=== PATIENT | female | born 1945 | race Caucasian/White ===

== ENCOUNTER 2017-06-26 08:23 | Emergency (ER) | payer MEDICARE, MEDICAID ==
[~2017-06-26] VITALS: Ht 160 cm; Wt 52.0 kg
[~2017-06-26 08:23] MED LIST: ATEN50TA23 PO; CITA20TA11 PO; CLON1TAB4 PO; FOLI1TAB16 PO; LEVO25TA7 PO; LISI2.5T2 PO; SIMV20TA5 PO; THI100T PO
[2017-06-26 08:29] VITALS: BP 160/62
[2017-06-26] MEDS ORDERED: NYST1000 PO (08:38)
[2017-06-26] MEDS ORDERED: LIDO20SO16 PO (08:38)
== END 2017-06-26 08:44 | disposition home or self-care (01) ==
LOC: ER 08:24
DX: K14.6 Glossodynia (principal); B37.0 Candidal stomatitis; I10 Essential (primary) hypertension
CPT/HCPCS: 99283

== ENCOUNTER 2018-04-10 11:01 | Inpatient (IN) | payer MEDICARE, MEDICAID ==
[~2018-04-10] VITALS: Ht 160 cm; Wt 64.0 kg
[~2018-04-10 11:01] MED LIST changes: +CITA-278 PO; -CITA20TA11 PO; +CLON1TAB12 PO; -CLON1TAB4 PO; +LIDO20SO16 PO
[2018-04-10] MEDS ORDERED: Potassium Cl inj 20 MEQ, magnesium sulf injection 2 GM, folic acid inj. 1 MG, thiamine ... IV ONE ×6 (11:13)
[2018-04-10] MEDS ORDERED: normal saline 1000ML IV soln IVB ONE (11:15)
--- NOTE | 2018-04-10 11:47 | NUR ---
pt out to ct via wheelchair with ct techs
[2018-04-10 11:55] LABS: BASOPHILS % (AUTO) 0.9 % (0-1); EOSINOPHILS # (AUTO) 0.1 X10'3 (0-0.9); EOSINOPHILS % (AUTO) 1.7 % (0-6); HEMOGLOBIN 8.2 g/dl (12.0-16.0); LYMPHOCYTES # (AUTO) 0.8 X10'3 (1.1-4.8); LYMPHOCYTES % (AUTO) 14.1 % (21-51); MEAN CORPUSCULAR HEMOGLOBIN 35.5 PG (27.0-31.0); MEAN CORPUSCULAR VOLUME 104.4 FL (78-98); MONOCYTES # (AUTO) 0.6 X10'3 (0-0.9); MONOCYTES % (AUTO) 11.6 % (2-12); NEUTROPHILS # (AUTO) 3.8 X10'3 (1.8-7.7); NEUTROPHILS % (AUTO) 71.7 % (42-75); PLATELET COUNT 279 X10'3 (140-440); RED CELL DISTRIBUTION WIDTH 13.9 % (11.5-14.5); WHITE BLOOD COUNT 5.3 X10'3 (4.5-11.0)
[2018-04-10 12:08] LABS: INR 1.1 INR; PARTIAL THROMBOPLASTIN TIME 26 SECONDS (22-32); PROTHROMBIN TIME 11.4 SECONDS (9.0-12.0)
[2018-04-10 12:11] LABS: ALANINE AMINOTRANSFERASE 28 U/L (12-78); ALBUMIN 2.8 G/DL (3.4-5.0); ALKALINE PHOSPHATASE 70 IU/L (46-116); ANION GAP 13 (8-16); ASPARTATE AMINO TRANSFERASE 28 U/L (10-37); BILIRUBIN,TOTAL 0.3 MG/DL (0.1-1.0); BLOOD UREA NITROGEN 9 MG/DL (7-18); CALCIUM 8.1 MG/DL (8.5-10.1); CHLORIDE 107 MMOL/L (99-107); CREATININE 0.75 MG/DL (0.40-0.90); GLUCOSE 83 MG/DL (70-104); POTASSIUM 3.8 MMOL/L (3.5-5.1); SODIUM 142 MMOL/L (135-145); TOTAL CARBON DIOXIDE 22.3 MMOL/L (24-32); TOTAL PROTEIN 5.7 G/DL (6.4-8.2); eGFR 76 ML/MIN
[2018-04-10 12:22] LABS: ETHANOL 0.038 GM/DL (0.0-0.010)
[2018-04-10 12:45] LABS: CLARITY,URINE CLEAR (Clear); COLOR,URINE YELLOW (Yellow); GLUCOSE, URINE NEGATIVE (Neg); KETONES,URINE NEGATIVE (Neg); LEUKOCYTE ESTERASE ,URINE NEGATIVE (Neg); NITRITES, URINE NEGATIVE (Neg); OCCULT BLOOD,URINE TRACE-INTACT (Neg); PH,URINE 5.5 (4.8-8.0); PROTEIN,URINE NEGATIVE (Neg); UROBILINOGEN,URINE 0.2 E.U/dL (0.2-1.0)
[2018-04-10 12:56] LABS: URINE AMPHETAMINE SCREEN NEGATIVE (Neg); URINE BARBITUATE SCREEN NEGATIVE (Neg); URINE BENZODIAZEPINES SCREEN POSITIVE (Neg); URINE CANNABINOID SCREEN NEGATIVE (Neg); URINE COCAINE SCREEN NEGATIVE (Neg); URINE METHADONE SCREEN NEGATIVE (Neg); URINE OPIATE SCREEN NEGATIVE (Neg); URINE PHENCYCLIDINE SCREEN NEGATIVE (Neg)
[2018-04-10 13:01] LABS: UA COLLECTION TYPE STRAIGHT CATH
[2018-04-10 13:02] LABS: SQUAMOUS EPITHELIAL CELL,UR MODERATE /LPF (FEW)
[2018-04-10 13:03] LABS: BACTERIA,URINE 2+ /HPF (Neg); WBC,URINE 0-4 /HPF (0-4)
[2018-04-10 13:04] LABS: RBC,URINE 0-2 /HPF (0-2)
[2018-04-10] MEDS: magnesium 2GM in 50ml NS 50 ML IV SCH ×2 (13:54→16:11)
[2018-04-10] MEDS ORDERED: TETanus/Pertussis (Acell)/Diphther VAC/PF (Tdap-Adult) 0.5ml syringe IM ONE (14:20)
[2018-04-10] MEDS ORDERED: LISI-600 PO (14:34)
[2018-04-10] MEDS ORDERED: THIA100T73 PO (14:35)
[2018-04-10] MEDS ORDERED: BUSP15TA14 PO (14:35)
[2018-04-10] MEDS ORDERED: magnesium 4gm in 100ml NS 100 ML IV PRN (15:00)
[2018-04-10] MEDS ORDERED: acetaminophen 325mg tablet PO PRN (15:00)
[2018-04-10] MEDS ORDERED: potassium Cl 20 mEq SR tablet PO PRN ×2 (15:00)
[2018-04-10] MEDS ORDERED: potassium Cl 40MEQ/NS 500ml 500 ML IV PRN ×2 (15:00)
[2018-04-10] MEDS ORDERED: magnesium 2GM in 50ml NS 50 ML IV PRN (15:00)
[2018-04-10] MEDS ORDERED: magnesium Cl slow-release 64mg tablet PO PRN (15:00)
[2018-04-10] MEDS ORDERED: ondansetron/PF 4mg/2ml inj IV PRN (15:00)
[2018-04-10] MEDS ORDERED: mag hydrox/Alum hydrox/simeth 30ml oral suspension PO PRN (15:00)
[2018-04-10] MEDS ORDERED: thiamine inj. 100 MG, magnesium sulf injection 2 GM, MVI, adult No.4 with vit. K 10 ML ... IV SCH ×4 (15:10)
[2018-04-10] MEDS: normal saline 1000ml 1,000 ML IV SCH (16:11)
--- NOTE | 2018-04-10 16:45 | NUR ---
Patient in room LITA 346. I have received report from Michael ROJO and had the opportunity to ask questions and assume patient care.
[2018-04-10 17:18] VITALS: BP 126/54
--- NOTE | 2018-04-10 17:30 | NUR ---
Patient was situated in room at this time patient was hooked back into IV therapies ordered by the physician, Vital signs take all WNL heart sounds S1S2, Lungs clear. Nasal swab was acquired and 2 nurse skin check was completed at this time. Patient was set up with tabs and bed alarm for the slot shift supervisor as well.
--- NOTE | 2018-04-10 18:55 | NUR ---
Problems reprioritized. Patient report given, questions answered & plan of care reviewed with Stephanie ROJO.
--- NOTE | 2018-04-10 18:56 | NUR ---
Patient in room LITA 346. I have received report from EVELINE ROJO and had the opportunity to ask questions and assume patient care.
[2018-04-10] MEDS: heparin, porcine 5000 units/ml vial SQ SCH (19:35)
[2018-04-10] MEDS: LORazepam 1 MG tablet PO PRN (19:59)
[2018-04-10 20:00] VITALS: BP 135/66
--- NOTE | 2018-04-10 22:00 | NUR ---
PATIENT CANNOT BE DARTED VERY CONFUSED, WILL REPORT AM RN TO DART WITH PATIENT'S FAMILY.
[2018-04-11] VITALS: BP 117/50
[2018-04-11] MEDS: normal saline 1000ml 1,000 ML IV SCH ×3 (01:17→19:27)
[2018-04-11] MEDS: LORazepam 1 MG tablet PO PRN ×2 (03:41→19:23)
[2018-04-11 06:21] LABS: BASOPHILS # (AUTO) 0.1 X10'3 (0-0.2); BASOPHILS % (AUTO) 1.9 % (0-1); EOSINOPHILS # (AUTO) 0.1 X10'3 (0-0.9); EOSINOPHILS % (AUTO) 2.4 % (0-6); HEMATOCRIT 26.4 % (35.0-45.0); HEMOGLOBIN 8.8 g/dl (12.0-16.0); LYMPHOCYTES # (AUTO) 1.6 X10'3 (1.1-4.8); LYMPHOCYTES % (AUTO) 26.7 % (21-51); MEAN CORPUSCULAR HEMOGLOBIN 35.5 PG (27.0-31.0); MEAN CORPUSCULAR HGB CONC 33.2 g/dL (33.0-36.5); MEAN CORPUSCULAR VOLUME 106.9 FL (78-98); MEAN PLATELET VOLUME 7.6 FL (7.4-10.4); MONOCYTES # (AUTO) 0.7 X10'3 (0-0.9); MONOCYTES % (AUTO) 12.5 % (2-12); NEUTROPHILS # (AUTO) 3.4 X10'3 (1.8-7.7); NEUTROPHILS % (AUTO) 56.5 % (42-75); PLATELET COUNT 253 X10'3 (140-440); RED BLOOD COUNT 2.47 X10'6 (4.20-5.60); RED CELL DISTRIBUTION WIDTH 13.4 % (11.5-14.5); WHITE BLOOD COUNT 5.9 X10'3 (4.5-11.0)
--- NOTE | 2018-04-11 06:23 | NUR ---
Problems reprioritized. Patient report given, questions answered & plan of care reviewed with EVELINE RN.
[2018-04-11 06:38] LABS: INR 1.1 INR; PROTHROMBIN TIME 10.7 SECONDS (9.0-12.0)
--- NOTE | 2018-04-11 06:41 | NUR ---
Patient in room LITA 346. I have received report from Stephanie ROJO and had the opportunity to ask questions and assume patient care.
[2018-04-11 07:11] LABS: ALANINE AMINOTRANSFERASE 23 U/L (12-78); ALBUMIN 2.7 G/DL (3.4-5.0); ALBUMIN/GLOBULIN RATIO 0.8 (1.1-1.5); ALKALINE PHOSPHATASE 70 IU/L (46-116); AMYLASE 54 U/L (25-115); ANION GAP 12 (8-16); ASPARTATE AMINO TRANSFERASE 27 U/L (10-37); BILIRUBIN,TOTAL 0.3 MG/DL (0.1-1.0); BLOOD UREA NITROGEN 9 MG/DL (7-18); BUN/CREATININE RATIO 12.7 (6.6-38.0); CALCIUM 8.1 MG/DL (8.5-10.1); CHLORIDE 107 MMOL/L (99-107); CREATININE 0.71 MG/DL (0.40-0.90); GLUCOSE 80 MG/DL (70-104); LIPASE 73 U/L (73-393); MAGNESIUM 1.9 MG/DL (1.5-2.4); PHOSPHORUS 3.3 MG/DL (2.3-4.5); SODIUM 139 MMOL/L (135-145); TOTAL CARBON DIOXIDE 19.7 MMOL/L (24-32); TOTAL PROTEIN 5.9 G/DL (6.4-8.2); eGFR 81 ML/MIN
[2018-04-11 07:24] VITALS: BP 129/65
[2018-04-11] MEDS: K and/or MAG REPLACEMENT MC SCH (08:00)
[2018-04-11] MEDS: thiamine inj. 100 MG, magnesium sulf injection 2 GM, MVI, adult No.4 with vit. K 10 ML ... IV SCH ×4 (08:28)
[2018-04-11] MEDS: heparin, porcine 5000 units/ml vial SQ SCH ×2 (08:28→19:26)
[2018-04-11 11:30] VITALS: BP 123/62
--- NOTE | 2018-04-11 18:43 | NUR ---
Problems reprioritized. Patient report given, questions answered & plan of care reviewed with ERNA ROJO.
--- NOTE | 2018-04-11 18:45 | NUR ---
Patient in room LITA 346. I have received report from EVELINE ROJO and had the opportunity to ask questions and assume patient care.
[2018-04-11] MEDS: busPIRone 15mg tablet PO SCH (19:24)
[2018-04-11 20:00] VITALS: BP 159/63
[2018-04-11] MEDS: atorvastatin 10mg tablet PO SCH (21:00)
[2018-04-11] MEDS: LORazepam 2 mg/ml vial IV PRN (21:04)
[2018-04-12] VITALS: BP 162/94
[2018-04-12] MEDS: LORazepam 2 mg/ml vial IV PRN ×2 (01:19→12:04)
[2018-04-12] MEDS: normal saline 1000ml 1,000 ML IV SCH ×2 (05:04→16:56)
--- NOTE | 2018-04-12 06:30 | NUR ---
Problems reprioritized. Patient report given, questions answered & plan of care reviewed with NATALIA ROJO.
--- NOTE | 2018-04-12 07:01 | NUR ---
Patient in room LITA 341. I have received report from ALIA UMANZOR and had the opportunity to ask questions and assume patient care.
[2018-04-12 07:19] LABS: BASOPHILS # (AUTO) 0.1 X10'3 (0-0.2); BASOPHILS % (AUTO) 0.9 % (0-1); EOSINOPHILS # (AUTO) 0.2 X10'3 (0-0.9); EOSINOPHILS % (AUTO) 2.7 % (0-6); HEMATOCRIT 29.4 % (35.0-45.0); HEMOGLOBIN 9.3 g/dl (12.0-16.0); LYMPHOCYTES # (AUTO) 1.1 X10'3 (1.1-4.8); LYMPHOCYTES % (AUTO) 18.5 % (21-51); MEAN CORPUSCULAR HEMOGLOBIN 33.6 PG (27.0-31.0); MEAN CORPUSCULAR HGB CONC 31.6 g/dL (33.0-36.5); MEAN CORPUSCULAR VOLUME 106.3 FL (78-98); MEAN PLATELET VOLUME 7.8 FL (7.4-10.4); MONOCYTES # (AUTO) 0.7 X10'3 (0-0.9); MONOCYTES % (AUTO) 10.7 % (2-12); NEUTROPHILS % (AUTO) 67.2 % (42-75); PLATELET COUNT 315 X10'3 (140-440); RED BLOOD COUNT 2.77 X10'6 (4.20-5.60); RED CELL DISTRIBUTION WIDTH 12.9 % (11.5-14.5); WHITE BLOOD COUNT 6.1 X10'3 (4.5-11.0)
[2018-04-12 07:24] LABS: INR 1.1 INR; PROTHROMBIN TIME 10.8 SECONDS (9.0-12.0)
[2018-04-12 07:30] LABS: ALANINE AMINOTRANSFERASE 27 U/L (12-78); ALBUMIN 2.9 G/DL (3.4-5.0); ALBUMIN/GLOBULIN RATIO 0.8 (1.1-1.5); ALKALINE PHOSPHATASE 79 IU/L (46-116); AMYLASE 64 U/L (25-115); ANION GAP 10 (8-16); ASPARTATE AMINO TRANSFERASE 26 U/L (10-37); BILIRUBIN,TOTAL 0.5 MG/DL (0.1-1.0); BLOOD UREA NITROGEN 7 MG/DL (7-18); BUN/CREATININE RATIO 9.2 (6.6-38.0); CALCIUM 8.8 MG/DL (8.5-10.1); CHLORIDE 104 MMOL/L (99-107); CREATININE 0.76 MG/DL (0.40-0.90); GLUCOSE 89 MG/DL (70-104); LIPASE 60 U/L (73-393); MAGNESIUM 1.7 MG/DL (1.5-2.4); PHOSPHORUS 2.9 MG/DL (2.3-4.5); POTASSIUM 3.8 MMOL/L (3.5-5.1); SODIUM 140 MMOL/L (135-145); TOTAL CARBON DIOXIDE 26.1 MMOL/L (24-32); TOTAL PROTEIN 6.4 G/DL (6.4-8.2); eGFR 75 ML/MIN
[2018-04-12 08:00] VITALS: BP 146/83
[2018-04-12] MEDS: K and/or MAG REPLACEMENT MC SCH (08:00)
[2018-04-12] MEDS: busPIRone 15mg tablet PO SCH ×2 (08:54→22:05)
[2018-04-12] MEDS: thiamine 100mg tablet PO SCH (08:54)
[2018-04-12] MEDS: citalopram 20mg tablet PO SCH (09:00)
[2018-04-12] MEDS: lisinopril 20mg tablet PO SCH (09:00)
[2018-04-12] MEDS: levoTHYROXINE 25mcg tablet PO SCH (09:00)
[2018-04-12] MEDS: sodium bicarbonate 650mg tablet PO SCH ×3 (09:00→22:05)
--- NOTE | 2018-04-12 09:00 | NUR ---
RESTRAINTS REMOVED AT THIS TIME. PATIENT IS ALERT, CALM AND COOPERATIVE. SITTER AT BEDSIDE.
[2018-04-12] MEDS: heparin, porcine 5000 units/ml vial SQ SCH ×2 (09:01→20:00)
[2018-04-12] MEDS: thiamine inj. 100 MG, magnesium sulf injection 2 GM, MVI, adult No.4 with vit. K 10 ML ... IV SCH ×4 (09:10)
--- NOTE | 2018-04-12 10:00 | NUR ---
UNABLE TO COMPLETE ADMISSION ASSESSMENT. PATIENT IS CONFUSED.
[2018-04-12 11:00] VITALS: BP 136/85
[2018-04-12] MEDS: CefTRIAXone/D5W-Rocephin 1gm 50 ML IV SCH ×3 (12:00→14:12)
--- NOTE | 2018-04-12 18:32 | NUR ---
Patient in room LITA 341. I have received report from NATALIA ROJO and had the opportunity to ask questions and assume patient care.
--- NOTE | 2018-04-12 18:37 | NUR ---
Problems reprioritized. Patient report given, questions answered & plan of care reviewed with ALIA ENRIQUEZ.
[2018-04-12 19:00] VITALS: BP 147/69
--- NOTE | 2018-04-12 21:00 | NUR ---
PATIENT IS CURRENTLY SLEEPING AND REFUSING MEDICATIONS OF ASSESSMENT, WILL ATTEMPT AGAIN SHORTLY.
[2018-04-12] MEDS: atorvastatin 10mg tablet PO SCH (22:05)
--- NOTE | 2018-04-12 22:15 | NUR ---
PATIENT IS ALLOWING RN TO GIVE MEDICATIONS AND ASSESS AT THIS TIME. PATIENT'S LEFT ANTECUBITAL AREA IS SWOLLEN, REDDENED, AND IRREGULARLY INDURATED UNDER THE SKIN. DR ALFARO AT BEDSIDE TO ASSESS AND BELIEVES IT IS LIKELY FROM AN INFILTRATED IV. WARM PACK GIVEN TO PATIENT. WILL CONTINUE TO MONITOR.
[2018-04-13] VITALS: BP 139/75
[2018-04-13] MEDS: normal saline 1000ml 1,000 ML IV SCH ×3 (02:56→16:37)
[2018-04-13 05:58] LABS: INR 1.1 INR; PROTHROMBIN TIME 10.9 SECONDS (9.0-12.0)
[2018-04-13 06:10] LABS: BASOPHILS # (AUTO) 0.1 X10'3 (0-0.2); BASOPHILS % (AUTO) 1.2 % (0-1); EOSINOPHILS # (AUTO) 0.2 X10'3 (0-0.9); EOSINOPHILS % (AUTO) 4.1 % (0-6); HEMATOCRIT 26.5 % (35.0-45.0); HEMOGLOBIN 8.6 g/dl (12.0-16.0); LYMPHOCYTES # (AUTO) 1.2 X10'3 (1.1-4.8); LYMPHOCYTES % (AUTO) 24.4 % (21-51); MEAN CORPUSCULAR HEMOGLOBIN 34.5 PG (27.0-31.0); MEAN CORPUSCULAR HGB CONC 32.4 g/dL (33.0-36.5); MEAN CORPUSCULAR VOLUME 106.5 FL (78-98); MEAN PLATELET VOLUME 7.7 FL (7.4-10.4); MONOCYTES # (AUTO) 0.7 X10'3 (0-0.9); MONOCYTES % (AUTO) 13.8 % (2-12); NEUTROPHILS # (AUTO) 2.9 X10'3 (1.8-7.7); NEUTROPHILS % (AUTO) 56.5 % (42-75); PLATELET COUNT 291 X10'3 (140-440); RED BLOOD COUNT 2.48 X10'6 (4.20-5.60); RED CELL DISTRIBUTION WIDTH 12.8 % (11.5-14.5); WHITE BLOOD COUNT 5.1 X10'3 (4.5-11.0)
[2018-04-13 06:11] LABS: ALANINE AMINOTRANSFERASE 20 U/L (12-78); ALBUMIN 2.4 G/DL (3.4-5.0); ALBUMIN/GLOBULIN RATIO 0.8 (1.1-1.5); ALKALINE PHOSPHATASE 65 IU/L (46-116); AMYLASE 60 U/L (25-115); ANION GAP 7 (8-16); ASPARTATE AMINO TRANSFERASE 16 U/L (10-37); BILIRUBIN,TOTAL 0.3 MG/DL (0.1-1.0); BLOOD UREA NITROGEN 7 MG/DL (7-18); BUN/CREATININE RATIO 9.1 (6.6-38.0); CALCIUM 8.4 MG/DL (8.5-10.1); CHLORIDE 107 MMOL/L (99-107); CREATININE 0.77 MG/DL (0.40-0.90); GLUCOSE 86 MG/DL (70-104); LIPASE 53 U/L (73-393); MAGNESIUM 1.6 MG/DL (1.5-2.4); PHOSPHORUS 3.3 MG/DL (2.3-4.5); SODIUM 140 MMOL/L (135-145); TOTAL CARBON DIOXIDE 25.9 MMOL/L (24-32); TOTAL PROTEIN 5.6 G/DL (6.4-8.2); eGFR 74 ML/MIN
--- NOTE | 2018-04-13 06:24 | NUR ---
Problems reprioritized. Patient report given, questions answered & plan of care reviewed with NATALIA ROJO.
--- NOTE | 2018-04-13 06:44 | NUR ---
Patient in room LITA 341. I have received report from ALIA ENRIQUEZ and had the opportunity to ask questions and assume patient care.
[2018-04-13 08:00] VITALS: BP 146/74
[2018-04-13] MEDS: K and/or MAG REPLACEMENT MC SCH (08:00)
[2018-04-13] MEDS: citalopram 20mg tablet PO SCH (08:44)
[2018-04-13] MEDS: sodium bicarbonate 650mg tablet PO SCH ×3 (08:44→20:28)
[2018-04-13] MEDS: busPIRone 15mg tablet PO SCH ×2 (08:44→20:28)
[2018-04-13] MEDS: thiamine 100mg tablet PO SCH (08:44)
[2018-04-13] MEDS: levoTHYROXINE 25mcg tablet PO SCH (08:44)
[2018-04-13] MEDS: lisinopril 20mg tablet PO SCH (08:45)
[2018-04-13] MEDS: heparin, porcine 5000 units/ml vial SQ SCH ×2 (08:47→20:28)
--- NOTE | 2018-04-13 09:00 | NUR ---
ATTEMPTED TO CORRECT ADMINISTRATION DATE OF ROCEPHIN. CALLED PHARMACISTFAINA TO ASSIST. EXPLAINED TO PHARMACIST THAT ROCEPHIN DUE 04/12 1200 HAD BEEN REFUSED BY PATIENT THEREFORE NON ADMIN DUE TO PATIENT REFUSING MEDICATION WAS SELECTED. HOWEVER, PATIENT DID AGREE TO HAVE ROCEPHIN ADMINISTERED AT 1412. ATTEMPTED TO UNDO NON ADMINISTRATION ACTION FOR 04/12 1200 AND DID ADMINISTER ROCEPHIN AT 1412 (04/12). BUT SOMEHOW DOCUMENTATION SHOWS THAT ON 04/12 1412 ROCEPHIN DOSE FOR 04/13 0800 WAS GIVEN. PHARMACIST STATES TO UNDO THAT DOCUMENTATION TO CORRECT. IN CONCLUSION, PATIENT DID RECEIVE ROCEPHIN ON 04/12 AT 1412 AND ALSO ROCEPHIN DOSE ON 04/13 ORDERED.
[2018-04-13] MEDS: CefTRIAXone/D5W-Rocephin 1gm 50 ML IV SCH (09:58)
[2018-04-13] MEDS: thiamine inj. 100 MG, magnesium sulf injection 2 GM, MVI, adult No.4 with vit. K 10 ML ... IV SCH ×8 (11:00→11:41)
[2018-04-13 16:20] VITALS: BP 131/74
--- NOTE | 2018-04-13 18:00 | NUR ---
Patient in room LITA 341. I have received report from Verónica ROJO and had the opportunity to ask questions and assume patient care.
--- NOTE | 2018-04-13 18:42 | NUR ---
Problems reprioritized. Patient report given, questions answered & plan of care reviewed with ALIA Mckenna.
[2018-04-13 20:00] VITALS: BP 150/79
[2018-04-13] MEDS: atorvastatin 10mg tablet PO SCH (20:28)
[2018-04-14] VITALS: BP 160/86
[2018-04-14] MEDS: normal saline 1000ml 1,000 ML IV SCH (04:12)
[2018-04-14 05:17] LABS: INR 1.1 INR; PROTHROMBIN TIME 10.7 SECONDS (9.0-12.0)
[2018-04-14 05:23] LABS: ALANINE AMINOTRANSFERASE 20 U/L (12-78); ALBUMIN 2.5 G/DL (3.4-5.0); ALBUMIN/GLOBULIN RATIO 0.8 (1.1-1.5); ALKALINE PHOSPHATASE 66 IU/L (46-116); AMYLASE 64 U/L (25-115); ANION GAP 7 (8-16); ASPARTATE AMINO TRANSFERASE 23 U/L (10-37); BILIRUBIN,TOTAL 0.2 MG/DL (0.1-1.0); BLOOD UREA NITROGEN 8 MG/DL (7-18); BUN/CREATININE RATIO 10.7 (6.6-38.0); CALCIUM 8.6 MG/DL (8.5-10.1); CHLORIDE 107 MMOL/L (99-107); CREATININE 0.75 MG/DL (0.40-0.90); GLUCOSE 91 MG/DL (70-104); LIPASE 75 U/L (73-393); MAGNESIUM 1.7 MG/DL (1.5-2.4); PHOSPHORUS 3.7 MG/DL (2.3-4.5); POTASSIUM 3.8 MMOL/L (3.5-5.1); SODIUM 141 MMOL/L (135-145); TOTAL CARBON DIOXIDE 26.7 MMOL/L (24-32); TOTAL PROTEIN 5.8 G/DL (6.4-8.2); eGFR 76 ML/MIN
[2018-04-14 05:47] LABS: BASOPHILS # (AUTO) 0.1 X10'3 (0-0.2); BASOPHILS % (AUTO) 1.8 % (0-1); EOSINOPHILS # (AUTO) 0.3 X10'3 (0-0.9); EOSINOPHILS % (AUTO) 6.2 % (0-6); HEMATOCRIT 25.3 % (35.0-45.0); HEMOGLOBIN 8.6 g/dl (12.0-16.0); LYMPHOCYTES # (AUTO) 1.1 X10'3 (1.1-4.8); LYMPHOCYTES % (AUTO) 24.2 % (21-51); MEAN CORPUSCULAR HEMOGLOBIN 35.8 PG (27.0-31.0); MEAN CORPUSCULAR HGB CONC 34.2 g/dL (33.0-36.5); MEAN CORPUSCULAR VOLUME 104.4 FL (78-98); MEAN PLATELET VOLUME 7.8 FL (7.4-10.4); MONOCYTES # (AUTO) 0.7 X10'3 (0-0.9); NEUTROPHILS # (AUTO) 2.5 X10'3 (1.8-7.7); NEUTROPHILS % (AUTO) 53.8 % (42-75); PLATELET COUNT 313 X10'3 (140-440); RED BLOOD COUNT 2.42 X10'6 (4.20-5.60); WHITE BLOOD COUNT 4.7 X10'3 (4.5-11.0)
--- NOTE | 2018-04-14 06:00 | NUR ---
Patient in room LITA 341. I have received report from TUCKER ROJO and had the opportunity to ask questions and assume patient care.
--- NOTE | 2018-04-14 06:32 | NUR ---
Problems reprioritized. Patient report given, questions answered & plan of care reviewed with Kelly ROJO. Sitter at bedside. no signs of distress. call light in reach. iv intact
[2018-04-14 07:00] VITALS: BP 162/81
--- NOTE | 2018-04-14 07:12 | NUR ---
ua ordered on 04-12-18 calling lab for results?
--- NOTE | 2018-04-14 07:13 | NUR ---
SPOKE WITH LAB, UA TAKES THREE DAYS FOR GROWTH.
[2018-04-14] MEDS: K and/or MAG REPLACEMENT MC SCH (08:00)
[2018-04-14] MEDS: busPIRone 15mg tablet PO SCH ×2 (08:44→20:23)
[2018-04-14] MEDS: heparin, porcine 5000 units/ml vial SQ SCH ×2 (08:44→20:23)
[2018-04-14] MEDS: levoTHYROXINE 25mcg tablet PO SCH (08:44)
[2018-04-14] MEDS: citalopram 20mg tablet PO SCH (08:44)
[2018-04-14] MEDS: lisinopril 20mg tablet PO SCH (08:45)
[2018-04-14] MEDS: thiamine 100mg tablet PO SCH (08:45)
[2018-04-14] MEDS: sodium bicarbonate 650mg tablet PO SCH ×3 (08:45→20:23)
[2018-04-14] MEDS: CefTRIAXone/D5W-Rocephin 1gm 50 ML IV SCH (08:45)
[2018-04-14 11:00] VITALS: BP 140/79
[2018-04-14] MEDS: LORazepam 2 mg/ml vial IV PRN (16:40)
[2018-04-14] MEDS ORDERED: haloperidol lactate 5mg/ml inj IM PRN (17:25)
[2018-04-14] MEDS ORDERED: haloperidol lactate 5mg/ml inj IM ONE (17:25)
--- NOTE | 2018-04-14 17:45 | NUR ---
PT BECAME QUITE AGITATED THREATENED TO LEAVE. SECURITY CAME TO HELP. PER SECURITY SHE IS NOT A 5150 AND WE HAVE NO LEGAL RIGHT TO HOLD THE PT AGAINST HER WILL. ASKED PT TO LET ME CALL HER SON, CALLED SON WHILE WAS NOTIFIED BY ANOTHER NURSE. HE ORDERED HALDOL 5MG. SHE WILLINGLY ACCEPTED THE IM MED AND APOLOGIZED FOR HER OUTBURST. PT HAS DECIDED TO STAY FOR NOW OF HER OWN FREE WILL. CHARGE, ALTITUDE CHAMBER TECHNICIAN AND HOSPITALIST NOTIFIED.
--- NOTE | 2018-04-14 18:30 | NUR ---
Patient in room LITA 358. I have received report from Kelly ROJO and had the opportunity to ask questions and assume patient care. Pt in bed eating. Changed rooms. sitter at bedside. call light and frq used belongings. no signs of distress. will continue to monitor.
[2018-04-14 20:00] VITALS: BP 142/60
[2018-04-14] MEDS: atorvastatin 10mg tablet PO SCH (20:23)
[2018-04-14] MEDS: lactobacillus rhamnosus 10,000 MMU CELLS/CAPSULE PO SCH (20:23)
[2018-04-15] VITALS: BP 146/63
[2018-04-15 05:53] LABS: EOSINOPHILS # (AUTO) 0.3 X10'3 (0-0.9); HEMATOCRIT 25.3 % (35.0-45.0); HEMOGLOBIN 8.6 g/dl (12.0-16.0); LYMPHOCYTES # (AUTO) 1.4 X10'3 (1.1-4.8); MEAN CORPUSCULAR HEMOGLOBIN 34.9 PG (27.0-31.0); MEAN CORPUSCULAR HGB CONC 34.1 g/dL (33.0-36.5); MEAN CORPUSCULAR VOLUME 102.5 FL (78-98); MEAN PLATELET VOLUME 7.8 FL (7.4-10.4); MONOCYTES # (AUTO) 0.7 X10'3 (0-0.9); NEUTROPHILS # (AUTO) 2.2 X10'3 (1.8-7.7); PLATELET COUNT 280 X10'3 (140-440); RED BLOOD COUNT 2.47 X10'6 (4.20-5.60); RED CELL DISTRIBUTION WIDTH 13.5 % (11.5-14.5); WHITE BLOOD COUNT 4.6 X10'3 (4.5-11.0)
[2018-04-15 05:54] LABS: BASOPHILS % (AUTO) 0.3 % (0-1); EOSINOPHILS % (AUTO) 6.9 % (0-6); INR 1.1 INR; MONOCYTES % (AUTO) 14.7 % (2-12); NEUTROPHILS % (AUTO) 48.1 % (42-75); PROTHROMBIN TIME 10.9 SECONDS (9.0-12.0)
[2018-04-15 06:03] LABS: ALANINE AMINOTRANSFERASE 24 U/L (12-78); ALBUMIN 2.6 G/DL (3.4-5.0); ALBUMIN/GLOBULIN RATIO 0.8 (1.1-1.5); ALKALINE PHOSPHATASE 68 IU/L (46-116); AMYLASE 76 U/L (25-115); ANION GAP 8 (8-16); ASPARTATE AMINO TRANSFERASE 23 U/L (10-37); BILIRUBIN,TOTAL 0.2 MG/DL (0.1-1.0); BLOOD UREA NITROGEN 8 MG/DL (7-18); CALCIUM 9.1 MG/DL (8.5-10.1); CHLORIDE 107 MMOL/L (99-107); GLUCOSE 87 MG/DL (70-104); LIPASE 69 U/L (73-393); MAGNESIUM 1.3 MG/DL (1.5-2.4); PHOSPHORUS 4.4 MG/DL (2.3-4.5); POTASSIUM 3.8 MMOL/L (3.5-5.1); SODIUM 143 MMOL/L (135-145); eGFR 71 ML/MIN
--- NOTE | 2018-04-15 06:20 | NUR ---
Patient in room LITA 358. I have received report from TUCKER ROJO and had the opportunity to ask questions and assume patient care. PATIENT IN BED SLEEPING SITTER AT BEDSIDE
--- NOTE | 2018-04-15 06:30 | NUR ---
Problems reprioritized. Patient report given, questions answered & plan of care reviewed with Laura ROJO. No signs of distress, pt resting eyes closed. IV intact
[2018-04-15 07:26] VITALS: BP 157/78
[2018-04-15] MEDS: thiamine 100mg tablet PO SCH (07:55)
[2018-04-15] MEDS: sodium bicarbonate 650mg tablet PO SCH ×3 (07:55→20:26)
[2018-04-15] MEDS: citalopram 20mg tablet PO SCH (07:55)
[2018-04-15] MEDS: busPIRone 15mg tablet PO SCH ×2 (07:55→20:26)
[2018-04-15] MEDS: levoTHYROXINE 25mcg tablet PO SCH (07:55)
[2018-04-15] MEDS: lactobacillus rhamnosus 10,000 MMU CELLS/CAPSULE PO SCH ×2 (07:55→20:27)
[2018-04-15] MEDS: heparin, porcine 5000 units/ml vial SQ SCH ×2 (07:56→20:27)
[2018-04-15] MEDS: lisinopril 20mg tablet PO SCH (07:56)
[2018-04-15] MEDS: CefTRIAXone/D5W-Rocephin 1gm 50 ML IV SCH (07:57)
[2018-04-15] MEDS: K and/or MAG REPLACEMENT MC SCH (08:00)
--- NOTE | 2018-04-15 10:03 | NUR ---
Initial: Pt admit with acute alcohol intoxication, anemia, and hypomagnesemia associated with severe dehydration per H&P. Pt on Etoh w/d protocol which includes banana bag. Pt on a regular diet with increasing PO intake, now 100% meeting nutrient needs. [facility] 04/14. No nutrition diagnosis at this time. Will continue to follow. Recommendations: 1) Continue regular diet 2) Continue banana bag given hx Etoh use 3) Wt per rx Addendum: 04/15/18 at [address] Amended: Links added.
[2018-04-15] MEDS: thiamine inj. 100 MG, magnesium sulf injection 2 GM, MVI, adult No.4 with vit. K 10 ML ... IV SCH ×4 (10:05)
[2018-04-15 11:00] VITALS: BP 144/60
[2018-04-15] MEDS ORDERED: potassium Cl 40MEQ/NS 500ml 500 ML IV PRN ×2 (13:15)
[2018-04-15] MEDS ORDERED: potassium Cl 20 mEq SR tablet PO PRN ×2 (13:15)
[2018-04-15] MEDS ORDERED: magnesium Cl slow-release 64mg tablet PO PRN (13:15)
[2018-04-15] MEDS: magnesium hydroxide 30ml (MOM) UD suspension PO PRN (13:49)
--- NOTE | 2018-04-15 18:20 | NUR ---
Patient in room LITA 358. I have received report from Laura ROJO and had the opportunity to ask questions and assume patient care. no signs of distress. IV intact. BLL, SR up x2, call light and frq used items within reach. will continue to monitor.
--- NOTE | 2018-04-15 18:22 | NUR ---
Problems reprioritized. Patient report given, TUCKER ROJO questions answered & plan of care reviewed with . PATIENT SITTING UP IN BED WATCHING TV. BED LOW LOCKED CALL LIGHT IN REACH
[2018-04-15 20:00] VITALS: BP 155/64
[2018-04-15] MEDS: atorvastatin 10mg tablet PO SCH (20:26)
[2018-04-16] VITALS: BP 170/60
[2018-04-16 03:03] VITALS: BP 140/69
--- NOTE | 2018-04-16 06:45 | NUR ---
Problems reprioritized. Patient report given, questions answered & plan of care reviewed with Melanie ROJO. call light in reach. no signs of distress, writing on a piece of paper. frq used belongings in reach. iv intact
[2018-04-16] MEDS: K and/or MAG REPLACEMENT MC SCH (07:08)
[2018-04-16] MEDS: lactobacillus rhamnosus 10,000 MMU CELLS/CAPSULE PO SCH ×2 (07:52→20:23)
[2018-04-16] MEDS: citalopram 20mg tablet PO SCH (07:52)
[2018-04-16] MEDS: busPIRone 15mg tablet PO SCH ×2 (07:52→20:23)
[2018-04-16] MEDS: thiamine 100mg tablet PO SCH (07:52)
[2018-04-16] MEDS: sodium bicarbonate 650mg tablet PO SCH ×3 (07:52→20:23)
[2018-04-16] MEDS: levoTHYROXINE 25mcg tablet PO SCH (07:53)
[2018-04-16] MEDS: lisinopril 20mg tablet PO SCH (07:53)
[2018-04-16] MEDS: heparin, porcine 5000 units/ml vial SQ SCH ×2 (07:53→20:22)
[2018-04-16] MEDS: CefTRIAXone/D5W-Rocephin 1gm 50 ML IV SCH (07:54)
[2018-04-16 08:00] VITALS: BP 160/71
[2018-04-16] MEDS: thiamine inj. 100 MG, magnesium sulf injection 2 GM, MVI, adult No.4 with vit. K 10 ML ... IV SCH ×4 (08:36)
[2018-04-16 11:00] VITALS: BP 130/56
--- NOTE | 2018-04-16 18:07 | NUR ---
Problems reprioritized. Patient report given, questions answered & plan of care reviewed with Evelia ROJO.
--- NOTE | 2018-04-16 18:34 | NUR ---
Patient in room LITA 358. I have received report from Melanie ROJO and had the opportunity to ask questions and assume patient care. Patient sitting up in bed eating dinner, in no distress, respirations even and unlabored.
[2018-04-16 20:00] VITALS: BP 145/72
[2018-04-16] MEDS: magnesium hydroxide 30ml (MOM) UD suspension PO PRN (20:22)
[2018-04-16] MEDS: atorvastatin 10mg tablet PO SCH (20:23)
[2018-04-17] VITALS: BP 148/57
--- NOTE | 2018-04-17 03:07 | NUR ---
PAGED DR ROY FOR RESTRAINT ORDER, PATIENT VERY COMBATIVE AND PLACED IN SOFT WRIST RESTRAINTS AT THIS TIME. WILL CONTINUE TO MONITOR.
--- NOTE | 2018-04-17 05:05 | NUR ---
ATTEMPTED TO PAGE DR ROY AGAIN FOR RESTRAINT ORDER.
--- NOTE | 2018-04-17 06:10 | NUR ---
Patient in room LITA 358. I have received report from ALIA Altamirano and had the opportunity to ask questions and assume patient care. Patient agitated at this time.
--- NOTE | 2018-04-17 06:40 | NUR ---
Patient refusing morning vitals. Patient educated on importance of vital signs and patient still refused. Patient had incontinence episode and is sitting in urine. Patient refusing to be cleaned up or have a bed changed. Patient educated on skin breakdown and importance of skin not sitting in moisture. Patient stated, " I don't care. Leave me alone!"
--- NOTE | 2018-04-17 06:46 | NUR ---
Problems reprioritized. Patient report given, questions answered & plan of care reviewed with Sanam ROJO.
[2018-04-17] MEDS: K and/or MAG REPLACEMENT MC SCH (07:21)
--- NOTE | 2018-04-17 07:28 | NUR ---
Patient refused to have morning medications. Patient stated, "My doctor gives me medications not you. I am not taking YOUR medications." Patient was educated that these medications are prescribed by the doctor and not by nursing stuff. Patient stated, " I don't care, I am not taking anything from you!! I don't even know who you are" Patient was told primary nurse name and that we would be caring for her. Patient stated, "I already have two nurses and and will not listen to anything you say". Will give patient time to calm down and try to give her medications later.
[2018-04-17 08:00] VITALS: BP 140/95
[2018-04-17 09:19] LABS: MAGNESIUM 1.9 MG/DL (1.5-2.4)
[2018-04-17] MEDS: levoTHYROXINE 25mcg tablet PO SCH (09:46)
[2018-04-17] MEDS: CefTRIAXone/D5W-Rocephin 1gm 50 ML IV SCH (09:46)
[2018-04-17] MEDS: citalopram 20mg tablet PO SCH (09:47)
[2018-04-17] MEDS: busPIRone 15mg tablet PO SCH ×2 (09:47→20:24)
[2018-04-17] MEDS: lactobacillus rhamnosus 10,000 MMU CELLS/CAPSULE PO SCH ×2 (09:48→20:24)
[2018-04-17] MEDS: magnesium Cl slow-release 64mg tablet PO SCH ×2 (09:48→20:24)
[2018-04-17] MEDS: sodium bicarbonate 650mg tablet PO SCH ×3 (09:48→20:24)
[2018-04-17] MEDS: thiamine 100mg tablet PO SCH (09:49)
[2018-04-17] MEDS: multivitamins, therapeutics tablet PO SCH (09:49)
[2018-04-17] MEDS: lisinopril 20mg tablet PO SCH (09:51)
[2018-04-17] MEDS: LORazepam 2 mg/ml vial IV PRN ×5 (09:52→18:51)
[2018-04-17] MEDS: heparin, porcine 5000 units/ml vial SQ SCH ×2 (09:52→20:25)
[2018-04-17 11:00] VITALS: BP 164/86
--- NOTE | 2018-04-17 11:49 | NUR ---
Patient trying to leave the unit to go to "apartment lobby to get my purse and keys from security". Patient was reoriented that she is in the hospital. Patient got very agitated and starting yelling, "I know I am in the hospital. I need to go downstairs where the apartments are to get all of my things". Restraints placed back on. MD notified. Will continue to monitor patient.
[2018-04-17] MEDS ORDERED: dextrose 50%-water 50ml dispensing syringe IV PRN (12:25)
[2018-04-17] MEDS ORDERED: haloperidol lactate 5mg/ml inj IM PRN (12:25)
[2018-04-17] MEDS ORDERED: haloperidol 5mg tablet PO PRN (12:25)
[2018-04-17 13:38] LABS: ETHANOL < 0.010 GM/DL (0.0-0.010)
[2018-04-17 18:00] VITALS: BP 143/75
[2018-04-17 18:01] LABS: URINE AMPHETAMINE SCREEN NEGATIVE (Neg); URINE BARBITUATE SCREEN NEGATIVE (Neg); URINE BENZODIAZEPINES SCREEN POSITIVE (Neg); URINE CANNABINOID SCREEN NEGATIVE (Neg); URINE COCAINE SCREEN NEGATIVE (Neg); URINE METHADONE SCREEN NEGATIVE (Neg); URINE OPIATE SCREEN NEGATIVE (Neg); URINE PHENCYCLIDINE SCREEN NEGATIVE (Neg)
--- NOTE | 2018-04-17 18:25 | NUR ---
Problems reprioritized. Patient report given, questions answered & plan of care reviewed with ALIA West. Patient agitated at this time. Sitter bedside, restraints reassessed.
--- NOTE | 2018-04-17 18:30 | NUR ---
Patient in room LITA 358. I have received report from Sanam ROJO and had the opportunity to ask questions and assume patient care. Sitter at bedside. Patient shows no s/s of distress or injury from restraints.
[2018-04-17] MEDS: atorvastatin 10mg tablet PO SCH (20:24)
[2018-04-18] VITALS: BP 158/78
[2018-04-18 07:48] VITALS: BP 146/72
[2018-04-18] MEDS: K and/or MAG REPLACEMENT MC SCH (08:00)
[2018-04-18] MEDS: levoTHYROXINE 25mcg tablet PO SCH (08:16)
[2018-04-18] MEDS: citalopram 20mg tablet PO SCH (08:17)
[2018-04-18] MEDS: sodium bicarbonate 650mg tablet PO SCH ×3 (08:17→21:40)
[2018-04-18] MEDS: multivitamins, therapeutics tablet PO SCH (08:17)
[2018-04-18] MEDS: lisinopril 20mg tablet PO SCH (08:17)
[2018-04-18] MEDS: lactobacillus rhamnosus 10,000 MMU CELLS/CAPSULE PO SCH ×2 (08:17→21:38)
[2018-04-18] MEDS: thiamine 100mg tablet PO SCH (08:18)
[2018-04-18] MEDS: magnesium Cl slow-release 64mg tablet PO SCH ×2 (08:18→21:38)
[2018-04-18] MEDS: busPIRone 15mg tablet PO SCH ×2 (08:18→21:37)
[2018-04-18] MEDS: heparin, porcine 5000 units/ml vial SQ SCH ×2 (08:20→21:39)
[2018-04-18] MEDS: CefTRIAXone/D5W-Rocephin 1gm 50 ML IV SCH (08:20)
--- NOTE | 2018-04-18 08:32 | NUR ---
Patient in room LITA 358. I have received report from Brett ROJO and had the opportunity to ask questions and assume patient care. Student documentation: I will review all interventions, assessments performed and documented by Maite PIERRE for [facility]. Student Medication Administration: For this medication-pass time frame, all medication were reviewed, dispensed, administered and documented per hospital policy by Maite ROJO.
[2018-04-18 15:08] VITALS: BP 104/54
[2018-04-18] MEDS: folic acid 1mg tablet PO SCH (16:39)
--- NOTE | 2018-04-18 18:10 | NUR ---
Problems reprioritized. Patient report given, questions answered & plan of care reviewed with Jadyn ROJO.
--- NOTE | 2018-04-18 18:20 | NUR ---
Patient in room LITA 358. I have received report from Sabra ROJO and had the opportunity to ask questions and assume patient care.
[2018-04-18 19:00] VITALS: BP 137/73
[2018-04-18] MEDS: atorvastatin 10mg tablet PO SCH (21:40)
[2018-04-19] VITALS: BP 138/70
--- NOTE | 2018-04-19 06:30 | NUR ---
Problems reprioritized. Patient report given, questions answered & plan of care reviewed with Cassie. Patient had a good night with no behavioural issues. Sean ayala/liz at 0015.
[2018-04-19 07:00] VITALS: BP 135/66
[2018-04-19 07:02] LABS: BASOPHILS # (AUTO) 0.1 X10'3 (0-0.2); BASOPHILS % (AUTO) 1.9 % (0-1); EOSINOPHILS # (AUTO) 0.3 X10'3 (0-0.9); EOSINOPHILS % (AUTO) 5.6 % (0-6); HEMATOCRIT 28.9 % (35.0-45.0); HEMOGLOBIN 9.6 g/dl (12.0-16.0); LYMPHOCYTES # (AUTO) 1.6 X10'3 (1.1-4.8); LYMPHOCYTES % (AUTO) 29.2 % (21-51); MEAN CORPUSCULAR HEMOGLOBIN 34.7 PG (27.0-31.0); MEAN CORPUSCULAR HGB CONC 33.3 g/dL (33.0-36.5); MEAN CORPUSCULAR VOLUME 104.1 FL (78-98); MEAN PLATELET VOLUME 7.7 FL (7.4-10.4); MONOCYTES # (AUTO) 0.8 X10'3 (0-0.9); MONOCYTES % (AUTO) 14.2 % (2-12); NEUTROPHILS # (AUTO) 2.7 X10'3 (1.8-7.7); NEUTROPHILS % (AUTO) 49.1 % (42-75); PLATELET COUNT 259 X10'3 (140-440); RED BLOOD COUNT 2.78 X10'6 (4.20-5.60); RED CELL DISTRIBUTION WIDTH 13.7 % (11.5-14.5); WHITE BLOOD COUNT 5.4 X10'3 (4.5-11.0)
--- NOTE | 2018-04-19 07:09 | NUR ---
Patient in room LITA 358. I have received report from Jadyn ROJO and had the opportunity to ask questions and assume patient care.
[2018-04-19 07:27] LABS: ALANINE AMINOTRANSFERASE 25 U/L (12-78); ALBUMIN 3.2 G/DL (3.4-5.0); ALBUMIN/GLOBULIN RATIO 0.9 (1.1-1.5); ALKALINE PHOSPHATASE 70 IU/L (46-116); ANION GAP 8 (8-16); ASPARTATE AMINO TRANSFERASE 20 U/L (10-37); BILIRUBIN,TOTAL 0.2 MG/DL (0.1-1.0); BLOOD UREA NITROGEN 12 MG/DL (7-18); CALCIUM 9.4 MG/DL (8.5-10.1); CHLORIDE 103 MMOL/L (99-107); GLUCOSE 88 MG/DL (70-104); POTASSIUM 4.1 MMOL/L (3.5-5.1); SODIUM 139 MMOL/L (135-145); TOTAL CARBON DIOXIDE 27.6 MMOL/L (24-32); TOTAL PROTEIN 6.8 G/DL (6.4-8.2); eGFR 71 ML/MIN
[2018-04-19] MEDS: K and/or MAG REPLACEMENT MC SCH (08:00)
[2018-04-19] MEDS: citalopram 20mg tablet PO SCH (08:54)
[2018-04-19] MEDS: multivitamins, therapeutics tablet PO SCH (08:54)
[2018-04-19] MEDS: levoTHYROXINE 25mcg tablet PO SCH (08:54)
[2018-04-19] MEDS: lactobacillus rhamnosus 10,000 MMU CELLS/CAPSULE PO SCH (08:54)
[2018-04-19] MEDS: folic acid 1mg tablet PO SCH (08:54)
[2018-04-19] MEDS: busPIRone 15mg tablet PO SCH (08:54)
[2018-04-19] MEDS: thiamine 100mg tablet PO SCH (08:54)
[2018-04-19] MEDS: sodium bicarbonate 650mg tablet PO SCH ×2 (08:55→13:07)
[2018-04-19 08:56] VITALS: BP_SYST 135
[2018-04-19] MEDS: lisinopril 20mg tablet PO SCH (08:56)
[2018-04-19] MEDS: magnesium Cl slow-release 64mg tablet PO SCH (08:56)
[2018-04-19] MEDS: heparin, porcine 5000 units/ml vial SQ SCH (09:04)
[2018-04-19] MEDS ORDERED: FOLI1TAB16 PO (10:06)
[2018-04-19] MEDS ORDERED: LORazepam 2 mg/ml vial IV PRN (12:25)
[2018-04-19] MEDS ORDERED: LORazepam 1 MG tablet PO PRN (12:25)
--- NOTE | 2018-04-19 15:05 | NUR ---
PATIENT APPEARS STABLE, MUCHLY IMPROVED IN ORIENTATION. STILL CONFUSED AT TIMES WITH YEAR , AND OTHER SPECIFIC FACTS. TIME SPENT WITH SON, VERBALIZING CONCERN ABOUT PATIENT MEDICATING HERSELF AND LVING ALONE. SON RESPONDED TO LAYTON ROJO THAT HE WAS WORKING ON DC PLAN FOR PATIENT BUT THAT HE WAS GOING TO STAY WITH HER TONIGHT. DC HOME VIA PRIVATE CAR WITH SON 1500HRS.
[2018-04-21] MEDS ORDERED: LORazepam 2 mg/ml vial IV PRN (12:25)
[2018-04-21] MEDS ORDERED: LORazepam 1 MG tablet PO PRN (12:25)
== END 2018-04-19 14:56 | disposition home or self-care (01) | DRG 896 ==
LOC: ER 11:02 → ED HOLD 15:22 → SUR 3N 16:46
PROVIDERS: ADMIT Internal Medicine; ATTEND Internal Medicine
PROC: 0HQ1XZZ Repair Face Skin, External Approach (ICD-10-PCS; principal; 2018-04-10)
DX: F10.229 Alcohol dependence with intoxication, unspecified (principal); G92 Toxic encephalopathy; N39.0 Urinary tract infection, site not specified; E86.0 Dehydration; F10.239 Alcohol dependence with withdrawal, unspecified; D64.9 Anemia, unspecified; E83.42 Hypomagnesemia; I10 Essential (primary) hypertension; E78.5 Hyperlipidemia, unspecified; F32.9 Major depressive disorder, single episode, unspecified; E03.9 Hypothyroidism, unspecified; F13.10 Sedative, hypnotic or anxiolytic abuse, uncomplicated; F17.200 Nicotine dependence, unspecified, uncomplicated; M47.812 Spondylosis without myelopathy or radiculopathy, cervical region; S01.81XA Laceration without foreign body of other part of head, initial encounter; W18.30XA Fall on same level, unspecified, initial encounter; Y90.1 Blood alcohol level of 20-39 mg/100 ml; Z90.49 Acquired absence of other specified parts of digestive tract; Z88.8 Allergy status to other drugs, medicaments and biological substances; W18.39XA Other fall on same level, initial encounter; Y93.89 Activity, other specified; Y92.89 Other specified places as the place of occurrence of the external cause; Y99.8 Other external cause status
CPT/HCPCS: 12011; 36415; 70450; 71045; 72125; 80053; 80305; 80320; 81001; 82140; 82150; 83690; 83735; 84100; 84443; 84484; 85025; 85610; 85730; 87070; 87088; 90715; 93005; 96360; 96361; 97116; 97161; 99285; G0378; J0696; J1630; J1644; J2060; J2405; J3411; J3475; J3480; J3490; J7030; J7060

== ENCOUNTER 2018-07-14 12:17 | Emergency (ER) | payer MEDICARE, MEDICAID ==
[~2018-07-14] VITALS: Ht 160 cm; Wt 54.5 kg
[~2018-07-14 12:17] MED LIST changes: -ATEN50TA23 PO; +BUSP15TA14 PO; -CITA-278 PO; +CITA20TA28 PO; -CLON1TAB12 PO; -LIDO20SO16 PO; +LISI-600 PO; -LISI2.5T2 PO; -THI100T PO; +THIA100T73 PO
[2018-07-14] MEDS ORDERED: thiamine 100mg tablet PO ONE (12:50)
[2018-07-14 13:07] LABS: BASOPHILS # (AUTO) 0.1 X10'3 (0-0.2); BASOPHILS % (AUTO) 0.7 % (0-1); EOSINOPHILS % (AUTO) 0.4 % (0-6); HEMATOCRIT 30.8 % (35.0-45.0); HEMOGLOBIN 10.7 g/dl (12.0-16.0); LYMPHOCYTES # (AUTO) 1.1 X10'3 (1.1-4.8); LYMPHOCYTES % (AUTO) 16.2 % (21-51); MEAN CORPUSCULAR HEMOGLOBIN 35.2 PG (27.0-31.0); MEAN CORPUSCULAR HGB CONC 34.7 g/dL (33.0-36.5); MEAN CORPUSCULAR VOLUME 101.7 FL (78-98); MEAN PLATELET VOLUME 7.1 FL (7.4-10.4); MONOCYTES # (AUTO) 1.1 X10'3 (0-0.9); MONOCYTES % (AUTO) 16.4 % (2-12); NEUTROPHILS # (AUTO) 4.6 X10'3 (1.8-7.7); NEUTROPHILS % (AUTO) 66.3 % (42-75); PLATELET COUNT 141 X10'3 (140-440); RED BLOOD COUNT 3.03 X10'6 (4.20-5.60); RED CELL DISTRIBUTION WIDTH 13.4 % (11.5-14.5)
[2018-07-14 13:28] LABS: ALANINE AMINOTRANSFERASE 92 U/L (12-78); ALBUMIN 3.7 G/DL (3.4-5.0); ALBUMIN/GLOBULIN RATIO 1.1 (1.1-1.5); ALKALINE PHOSPHATASE 83 IU/L (46-116); ANION GAP 11 (8-16); ASPARTATE AMINO TRANSFERASE 161 U/L (10-37); BILIRUBIN,TOTAL 0.6 MG/DL (0.1-1.0); BLOOD UREA NITROGEN 31 MG/DL (7-18); CALCIUM 9.3 MG/DL (8.5-10.1); CHLORIDE 98 MMOL/L (99-107); CREATININE 1.07 MG/DL (0.40-0.90); ETHANOL < 0.010 GM/DL (0.0-0.010); GLUCOSE 87 MG/DL (70-104); SODIUM 138 MMOL/L (135-145); TOTAL CARBON DIOXIDE 29.3 MMOL/L (24-32); TOTAL PROTEIN 7.2 G/DL (6.4-8.2); eGFR 51 ML/MIN
[2018-07-14 13:35] LABS: POTASSIUM 2.9 MMOL/L (3.5-5.1)
[2018-07-14] MEDS ORDERED: potassium Cl 20 mEq SR tablet PO STA (13:36)
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
[2018-07-14 13:58] LABS: CLARITY,URINE SLIGHTLY CLOUDY (Clear); COLOR,URINE YELLOW (Yellow); GLUCOSE, URINE NEGATIVE (Neg); KETONES,URINE 15 mg/dl (Neg); LEUKOCYTE ESTERASE ,URINE NEGATIVE (Neg); NITRITES, URINE NEGATIVE (Neg); OCCULT BLOOD,URINE SMALL (Neg); PROTEIN,URINE NEGATIVE (Neg); UROBILINOGEN,URINE 0.2 E.U/dL (0.2-1.0)
[2018-07-14 13:59] LABS: UA COLLECTION TYPE CLN CATCH MIDSTREAM
[2018-07-14 14:04] LABS: URINE AMPHETAMINE SCREEN NEGATIVE (Neg); URINE BARBITUATE SCREEN NEGATIVE (Neg); URINE BENZODIAZEPINES SCREEN NEGATIVE (Neg); URINE CANNABINOID SCREEN NEGATIVE (Neg); URINE COCAINE SCREEN NEGATIVE (Neg); URINE METHADONE SCREEN NEGATIVE (Neg); URINE OPIATE SCREEN NEGATIVE (Neg); URINE PHENCYCLIDINE SCREEN NEGATIVE (Neg)
[2018-07-14 14:08] LABS: SQUAMOUS EPITHELIAL CELL,UR MANY /LPF (FEW)
[2018-07-14 14:09] LABS: HYALINE CASTS 0-3 /LPF (NEGATIVE); MUCUS STRANDS FEW /LPF (Neg)
[2018-07-14 14:10] LABS: BACTERIA,URINE FEW /HPF (Neg); RBC,URINE 0-2 /HPF (0-2); WBC,URINE 0-4 /HPF (0-4)
--- NOTE | 2018-07-14 14:20 | NUR ---
pt has tried to walk off the unit a few times thinking she needs to go to the bathroom to brush her hair and going for a walk. the pt has been stopped and redirected three times. pt got frustrated saying "i'm not under restriction am I?" Informed the pt again that she is not allowed to leave at this time. gave the pt a coomb. called dietary and asked for the tray again. was told they will work on it.
--- NOTE | 2018-07-14 15:01 | NUR ---
called the number for Adelfo (pt's son) and left a message. called Herson earlier but he was not available and is out of town. talked with Aster for a little bit and asked a few questions.
--- NOTE | 2018-07-14 15:03 | NUR ---
informed by Aster that the pt has been living at [facility].
--- NOTE | 2018-07-14 15:11 | NUR ---
page sent for [facility] to evaluate pt. packet being sent.
[2018-07-14] MEDS ORDERED: famotidine 20mg tablet PO ONE (15:30)
--- NOTE | 2018-07-14 15:39 | NUR ---
called the [facility] and talked with Mary and was informed the pt does live there and lives in an independant living situation there. was told the pt has a hx of ETOH and substance abuse along with "hanging with homeless". Mary says she works 9a-3:30p and we can call any time to ask her questions. Addendum: 07/14/18 at 1543 by MAYAThe Mobile MajorityNaveen phone number for [facility] is [phone]
--- NOTE | 2018-07-14 15:39 | NUR ---
called the number for the nurse at the [facility]. no answer.
--- NOTE | 2018-07-14 15:57 | NUR ---
Adelfo (the pt's son) called and informed him about his mother being here and that we need a list of her medications. he states he will work on doing this. Adelfo states he has been attempting to get [facility] for her but hasn't gotten far. pt talked to her son on the phone for a few minutes and she started becoming loud on the phone with him and telling him she has been here since yesterday and she gave us a list of meds. this information is incorrect and I informed him of this.
[2018-07-14] MEDS ORDERED: VITA1TAB37 PO (16:52)
[2018-07-14] MEDS ORDERED: ACET-812 PO (16:52)
[2018-07-14] MEDS ORDERED: FOLI0.4T2 PO (16:52)
[2018-07-14] MEDS ORDERED: MAGNESIUM COMPLEX PO (16:52)
[2018-07-14] MEDS ORDERED: CALC-854 PO (16:52)
--- NOTE | 2018-07-14 17:09 | NUR ---
pt's son Shai came by and talked with pt for a few minutes. he also brought her medications for them to be reviewed. he states we can call him if we need more info.
[2018-07-14] MEDS ORDERED: acetaminophen 325mg tablet PO PRN (17:15)
--- NOTE | 2018-07-14 19:25 | NUR ---
The patient has been up on the unit. She is pleasant but confused. She thought the year was 2001. [facility] has seen the patient but was unable to safety plan her because they were not able to reach her sons or the staff at the [facility]. She will stay here tonight and they will attempt to safety plan her tomorrow. She denies SI. She denies depression or anxiety. She denies having psychotic symptoms. She is disorganized and confused. She does wander and an elopement band was placed.
[2018-07-14] MEDS ORDERED: busPIRone 15mg tablet PO SCH (20:00)
[2018-07-14] MEDS ORDERED: atorvastatin 10mg tablet PO SCH (21:00)
--- NOTE | 2018-07-14 21:04 | NUR ---
The patient has been accepted at [facility]
[2018-07-14 21:49] VITALS: BP 120/47
[2018-07-15] MEDS ORDERED: levoTHYROXINE 25mcg tablet PO SCH (07:00)
[2018-07-15] MEDS ORDERED: thiamine 100mg tablet PO SCH (08:00)
[2018-07-15] MEDS ORDERED: lisinopril 20mg tablet PO SCH (08:00)
[2018-07-15] MEDS ORDERED: folic acid 0.4mg tablet PO SCH (08:00)
[2018-07-15] MEDS ORDERED: citalopram 20mg tablet PO SCH (08:00)
[2018-07-15] MEDS ORDERED: calcium carbonate/vitamin D3 tablet PO SCH (08:00)
[2018-07-15] MEDS ORDERED: vitamin B comp w/Vit. C tab 1 TAB TABLET PO SCH (08:00)
== END 2018-07-14 21:51 ==
LOC: ER 12:17
DX: F79 Unspecified intellectual disabilities (principal); E11.9 Type 2 diabetes mellitus without complications; F41.9 Anxiety disorder, unspecified; F10.10 Alcohol abuse, uncomplicated; E87.6 Hypokalemia; I10 Essential (primary) hypertension; R41.82 Altered mental status, unspecified; Z90.49 Acquired absence of other specified parts of digestive tract; Z98.890 Other specified postprocedural states; Z79.899 Other long term (current) drug therapy; Y90.0 Blood alcohol level of less than 20 mg/100 ml
CPT/HCPCS: 36415; 70450; 80053; 80305; 80320; 81001; 84443; 85025; 99285

== ENCOUNTER 2019-01-03 11:47 | Emergency (ER) | payer MEDICARE, MEDICAID ==
[~2019-01-03] VITALS: Ht 160 cm; Wt 51.0 kg
[~2019-01-03 11:47] MED LIST changes: +ACET-812 PO; -BUSP15TA14 PO; +BUSP15TA8 PO; +CALC-854 PO; +FOLI0.4T2 PO; -FOLI1TAB16 PO; +MAGNESIUM COMPLEX PO; +SIMV-42 PO; -SIMV20TA5 PO; +VITA1TAB37 PO
--- NOTE | 2019-01-03 13:51 | NUR ---
PT BIB SON FOR MED CLEAR TO DETOX.
[2019-01-03 14:27] LABS: BASOPHILS # (AUTO) 0.1 X10'3 (0-0.2); BASOPHILS % (AUTO) 1.4 % (0-1); EOSINOPHILS # (AUTO) 0.1 X10'3 (0-0.9); EOSINOPHILS % (AUTO) 2.2 % (0-6); HEMATOCRIT 36.2 % (35.0-45.0); HEMOGLOBIN 12.3 g/dl (12.0-16.0); LYMPHOCYTES # (AUTO) 1.7 X10'3 (1.1-4.8); LYMPHOCYTES % (AUTO) 30.2 % (21-51); MEAN CORPUSCULAR HEMOGLOBIN 35.9 PG (27.0-31.0); MEAN CORPUSCULAR HGB CONC 33.8 g/dL (33.0-36.5); MEAN PLATELET VOLUME 7.3 FL (7.4-10.4); MONOCYTES # (AUTO) 0.6 X10'3 (0-0.9); MONOCYTES % (AUTO) 10.8 % (2-12); NEUTROPHILS # (AUTO) 3.2 X10'3 (1.8-7.7); NEUTROPHILS % (AUTO) 55.4 % (42-75); PLATELET COUNT 241 X10'3 (140-440); RED BLOOD COUNT 3.42 X10'6 (4.20-5.60); RED CELL DISTRIBUTION WIDTH 13.4 % (11.5-14.5); WHITE BLOOD COUNT 5.8 X10'3 (4.5-11.0)
[2019-01-03 14:31] LABS: CLARITY,URINE CLOUDY (Clear); COLOR,URINE YELLOW (Yellow); GLUCOSE, URINE NEGATIVE (Neg); KETONES,URINE NEGATIVE (Neg); LEUKOCYTE ESTERASE ,URINE SMALL (Neg); NITRITES, URINE NEGATIVE (Neg); OCCULT BLOOD,URINE NEGATIVE (Neg); PH,URINE 5.5 (4.8-8.0); PROTEIN,URINE NEGATIVE (Neg); UROBILINOGEN,URINE 0.2 E.U/dL (0.2-1.0)
[2019-01-03 14:38] LABS: UA COLLECTION TYPE CLN CATCH MIDSTREAM
[2019-01-03 14:39] LABS: BACTERIA,URINE 4+ /HPF (Neg); HYALINE CASTS 0-3 /LPF (NEGATIVE); MUCUS STRANDS NONE SEEN /LPF (Neg); RBC,URINE 0-2 /HPF (0-2); SQUAMOUS EPITHELIAL CELL,UR MODERATE /LPF (FEW); WBC CLUMPS,URINE MODERATE /HPF (NEGATIVE); WBC,URINE 30-50 /HPF (0-4)
[2019-01-03 14:45] LABS: ALANINE AMINOTRANSFERASE 24 U/L (12-78); ALKALINE PHOSPHATASE 85 IU/L (46-116); ANION GAP 11 (8-16); ASPARTATE AMINO TRANSFERASE 28 U/L (10-37); BILIRUBIN,TOTAL 0.1 MG/DL (0.1-1.0); BLOOD UREA NITROGEN 11 MG/DL (7-18); CALCIUM 9.3 MG/DL (8.5-10.1); CHLORIDE 101 MMOL/L (99-107); CREATININE 1.22 MG/DL (0.40-0.90); ETHANOL 0.088 GM/DL (0.0-0.010); GLUCOSE 97 MG/DL (70-104); POTASSIUM 3.7 MMOL/L (3.5-5.1); SODIUM 137 MMOL/L (135-145); TOTAL CARBON DIOXIDE 25.1 MMOL/L (24-32); eGFR 43 ML/MIN
[2019-01-03] MEDS ORDERED: normal saline 1000ML IV soln IVB ONE ×2 (14:55→16:35)
[2019-01-03] MEDS ORDERED: CefTRIAXone/D5W-Rocephin 1gm 50 ML IV ONE (14:55)
--- NOTE | 2019-01-03 16:18 | NUR ---
PT MOVED FROM [facility] TO BED 2 FOR IVF, IV ABX
[2019-01-03] MEDS ORDERED: CEPH500C5 PO (16:37)
[2019-01-03] MEDS ORDERED: thiamine 100mg/ml 2ml inj. IV ONE (16:40)
[2019-01-03 17:09] VITALS: BP 135/71
== END 2019-01-03 17:43 | disposition home or self-care (01) ==
LOC: ER 11:48
DX: F10.129 Alcohol abuse with intoxication, unspecified (principal); N39.0 Urinary tract infection, site not specified; I10 Essential (primary) hypertension; F41.9 Anxiety disorder, unspecified; Z90.49 Acquired absence of other specified parts of digestive tract; Z86.69 Personal history of other diseases of the nervous system and sense organs; Z98.890 Other specified postprocedural states; Z79.2 Long term (current) use of antibiotics; Z79.899 Other long term (current) drug therapy; Y90.0 Blood alcohol level of less than 20 mg/100 ml
CPT/HCPCS: 36415; 80053; 80320; 81001; 82948; 85025; 87077; 87088; 87186; 96365; 96375; 99284; J0696; J3411; J7030

== ENCOUNTER 2019-02-05 05:09 | Emergency (ER) | payer MEDICARE, MEDICAID ==
[~2019-02-05] VITALS: Ht 160 cm; Wt 55.9 kg
[2019-02-05] MEDS ORDERED: ketorolac trometh inj. 60 MG/2 ML VIAL IM ONE (05:30)
[2019-02-05 05:45] VITALS: BP 132/64
== END 2019-02-05 06:40 | disposition home or self-care (01) ==
LOC: ER 05:09
DX: M54.2 Cervicalgia (principal); I10 Essential (primary) hypertension; F41.9 Anxiety disorder, unspecified; Z86.69 Personal history of other diseases of the nervous system and sense organs; Z90.49 Acquired absence of other specified parts of digestive tract; Z98.890 Other specified postprocedural states; Z79.899 Other long term (current) drug therapy
CPT/HCPCS: 96372; 99283; J1885

== ENCOUNTER 2019-12-07 14:59 | Emergency (ER) | payer MEDICARE, MEDICAID ==
[~2019-12-07] VITALS: Ht 162.6 cm; Wt 50.0 kg
[2019-12-07] MEDS ORDERED: thiamine 100mg/ml 2ml inj. IV ONE (15:10)
[2019-12-07] MEDS ORDERED: normal saline 1000ML IV soln IVB ONE (15:10)
[2019-12-07] MEDS ORDERED: folic acid 1mg/0.2ml inj IV ONE (15:10)
[2019-12-07 15:42] LABS: BASOPHILS # (AUTO) 0.1 X10'3 (0-0.2); BASOPHILS % (AUTO) 0.8 % (0-1); EOSINOPHILS # (AUTO) 0.1 X10'3 (0-0.9); EOSINOPHILS % (AUTO) 0.6 % (0-6); HEMATOCRIT 29.2 % (35.0-45.0); LYMPHOCYTES % (AUTO) 20.4 % (21-51); MEAN CORPUSCULAR HEMOGLOBIN 33.9 PG (27.0-31.0); MEAN CORPUSCULAR HGB CONC 34.1 g/dL (33.0-36.5); MEAN CORPUSCULAR VOLUME 99.5 FL (78-98); MEAN PLATELET VOLUME 7.6 FL (7.4-10.4); MONOCYTES # (AUTO) 1.2 X10'3 (0-0.9); MONOCYTES % (AUTO) 12.7 % (2-12); NEUTROPHILS # (AUTO) 6.4 X10'3 (1.8-7.7); NEUTROPHILS % (AUTO) 65.5 % (42-75); PLATELET COUNT 242 X10'3 (140-440); RED BLOOD COUNT 2.93 X10'6 (4.20-5.60); RED CELL DISTRIBUTION WIDTH 14.4 % (11.5-14.5); WHITE BLOOD COUNT 9.7 X10'3 (4.5-11.0)
[2019-12-07 15:58] LABS: ALANINE AMINOTRANSFERASE 17 U/L (12-78); ALBUMIN/GLOBULIN RATIO 1.1 (1.1-1.5); ALKALINE PHOSPHATASE 74 IU/L (46-116); ANION GAP 7 (8-16); ASPARTATE AMINO TRANSFERASE 19 U/L (10-37); BILIRUBIN,TOTAL 0.6 MG/DL (0.1-1.0); BLOOD UREA NITROGEN 14 MG/DL (7-18); BUN/CREATININE RATIO 11.4 (6.6-38.0); CALCIUM 9.5 MG/DL (8.5-10.1); CHLORIDE 90 MMOL/L (99-107); CREATININE 1.23 MG/DL (0.40-0.90); GLUCOSE 105 MG/DL (70-104); POTASSIUM 4.3 MMOL/L (3.5-5.1); SODIUM 122 MMOL/L (135-145); TOTAL CARBON DIOXIDE 24.9 MMOL/L (24-32); TOTAL PROTEIN 7.7 G/DL (6.4-8.2); eGFR 43 ML/MIN
[2019-12-07 15:59] LABS: ETHANOL < 0.010 GM/DL (0.0-0.010)
--- NOTE | 2019-12-07 17:15 | NUR ---
IV FINALLY ESTABLISHED PT DIFFICULT STICK. PT CONTINUES TO DENIE SI AND HI AND SON REMAINS AT BEDSIDE.
--- NOTE | 2019-12-07 18:54 | NUR ---
ASSISTING RN WITH PT CARE, PT IS RESTLESS, Mik FOX GAVE VERBAL ORDER FOR ATIVAN 1MG PO X1 NOW
[2019-12-07] MEDS ORDERED: LORazepam 1 MG tablet PO ONE (18:55)
--- NOTE | 2019-12-07 19:45 | NUR ---
Pt brought back from main ER. She is sitting in bed talking to herself, tangential. Making non sensical statements and laughing, "give my your half mansion, Damion got be sent here, but me on a bus from [place], do you have a family now pretty girl?"
--- NOTE | 2019-12-07 21:26 | NUR ---
Pt is asleep, resting quietly no s/s distress. RR even and unlabored.
--- NOTE | 2019-12-07 22:42 | NUR ---
pt is taking short naps but wakes easily and talking loudly. Pts speech is tangential, talking about "n[place]" states she should have brought pampers so she doesnt pee her bed.
[2019-12-07] MEDS ORDERED: OLANZapine 2.5MG tablet PO ONE (23:00)
[2019-12-08 05:49] VITALS: BP 110/57
[2019-12-08] MEDS ORDERED: BUSP15TA7 PO (06:47)
[2019-12-08] MEDS ORDERED: FOLI0.4T2 PO (06:56)
[2019-12-08 06:58] LABS: CLARITY,URINE CLEAR (Clear); COLOR,URINE YELLOW (Yellow); GLUCOSE, URINE NEGATIVE (Neg); KETONES,URINE NEGATIVE (Neg); LEUKOCYTE ESTERASE ,URINE NEGATIVE (Neg); NITRITES, URINE NEGATIVE (Neg); OCCULT BLOOD,URINE NEGATIVE (Neg); PH,URINE 6.5 (4.8-8.0); PROTEIN,URINE NEGATIVE (Neg); UROBILINOGEN,URINE 0.2 E.U/dL (0.2-1.0)
[2019-12-08 06:59] LABS: UA COLLECTION TYPE CLN CATCH MIDSTREAM
--- NOTE | 2019-12-08 07:00 | NUR ---
walking pt to the bathroom for ua
[2019-12-08 07:20] LABS: URINE AMPHETAMINE SCREEN NEGATIVE (Neg); URINE BARBITUATE SCREEN NEGATIVE (Neg); URINE BENZODIAZEPINES SCREEN NEGATIVE (Neg); URINE CANNABINOID SCREEN NEGATIVE (Neg); URINE COCAINE SCREEN NEGATIVE (Neg); URINE METHADONE SCREEN NEGATIVE (Neg); URINE OPIATE SCREEN NEGATIVE (Neg); URINE PHENCYCLIDINE SCREEN NEGATIVE (Neg)
--- NOTE | 2019-12-08 08:00 | NUR ---
pt is sleeping
[2019-12-08] MEDS ORDERED: acetaminophen 325mg tablet PO PRN (08:05)
[2019-12-08 08:33] LABS: ALBUMIN 3.2 G/DL (3.4-5.0); ANION GAP 5 (8-16); BLOOD UREA NITROGEN 10 MG/DL (7-18); BUN/CREATININE RATIO 10.8 (6.6-38.0); CALCIUM 8.8 MG/DL (8.5-10.1); CHLORIDE 96 MMOL/L (99-107); CREATININE 0.93 MG/DL (0.40-0.90); GLUCOSE 89 MG/DL (70-104); POTASSIUM 4.2 MMOL/L (3.5-5.1); SODIUM 127 MMOL/L (135-145); TOTAL CARBON DIOXIDE 25.9 MMOL/L (24-32); eGFR 59 ML/MIN
--- NOTE | 2019-12-08 10:14 | NUR ---
breaking primary RN pt is supine in bed, sleeping, regular breathing present, no needs at this time
[2019-12-08] MEDS ORDERED: atorvastatin 10mg tablet PO SCH (21:00)
[2019-12-09] MEDS ORDERED: folic acid 0.4mg tablet PO SCH (08:00)
[2019-12-09] MEDS ORDERED: vitamin B comp w/Vit. C tab 1 TAB TABLET PO SCH (08:00)
[2019-12-09] MEDS ORDERED: busPIRone 15mg tablet PO SCH (08:00)
[2019-12-09] MEDS ORDERED: calcium carbonate/vitamin D3 tablet PO SCH (08:00)
[2019-12-09] MEDS ORDERED: levoTHYROXINE 25mcg tablet PO SCH (08:00)
[2019-12-09] MEDS ORDERED: lisinopril 20mg tablet PO SCH (08:00)
== END 2019-12-08 12:10 ==
LOC: ER 15:01
DX: F29 Unspecified psychosis not due to a substance or known physiological condition (principal); E87.1 Hypo-osmolality and hyponatremia; I10 Essential (primary) hypertension; F41.9 Anxiety disorder, unspecified; F32.9 Major depressive disorder, single episode, unspecified; Z86.69 Personal history of other diseases of the nervous system and sense organs; Z90.49 Acquired absence of other specified parts of digestive tract; Z98.890 Other specified postprocedural states; Z72.89 Other problems related to lifestyle; Z79.899 Other long term (current) drug therapy
CPT/HCPCS: 36415; 70450; 71045; 80048; 80053; 80305; 80320; 81003; 82140; 84443; 85025; 96374; 96375; 99285; J3411; J3490; J7030

== ENCOUNTER 2020-03-21 18:55 | Emergency (ER) | payer MEDICARE, MEDICAID ==
[~2020-03-21] VITALS: Ht 160 cm; Wt 55.0 kg
[~2020-03-21 18:55] MED LIST changes: +BUSP15TA7 PO; -BUSP15TA8 PO; -CITA20TA28 PO; -MAGNESIUM COMPLEX PO; -THIA100T73 PO
[2020-03-21 19:43] VITALS: BP 119/55
[2020-03-21] MEDS ORDERED: normal saline 1000ML IV soln IVB ONE (20:10)
[2020-03-21] MEDS ORDERED: magnesium oxide 400mg tablet PO ONE (20:15)
[2020-03-21] MEDS ORDERED: thiamine 100mg tablet PO ONE (20:15)
[2020-03-21] MEDS ORDERED: folic acid 1mg tablet PO ONE (20:15)
[2020-03-21 20:27] LABS: CLARITY,URINE CLOUDY (Clear); COLOR,URINE YELLOW (Yellow); GLUCOSE, URINE NEGATIVE (Neg); KETONES,URINE NEGATIVE (Neg); LEUKOCYTE ESTERASE ,URINE SMALL (Neg); NITRITES, URINE POSITIVE (Neg); OCCULT BLOOD,URINE TRACE-INTACT (Neg); PH,URINE 5.5 (4.8-8.0); PROTEIN,URINE TRACE mg/dl (Neg); UROBILINOGEN,URINE 0.2 E.U/dL (0.2-1.0)
[2020-03-21 20:27] LABS: BASOPHILS # (AUTO) 0.1 X10'3 (0-0.2); BASOPHILS % (AUTO) 1.2 % (0-1); EOSINOPHILS % (AUTO) 0.5 % (0-6); HEMATOCRIT 24.9 % (35.0-45.0); HEMOGLOBIN 8.5 g/dl (12.0-16.0); LYMPHOCYTES # (AUTO) 1.1 X10'3 (1.1-4.8); MEAN CORPUSCULAR HEMOGLOBIN 36.2 PG (27.0-31.0); MEAN CORPUSCULAR HGB CONC 34.1 g/dL (33.0-36.5); MEAN CORPUSCULAR VOLUME 106.1 FL (78-98); MEAN PLATELET VOLUME 7.1 FL (7.4-10.4); MONOCYTES # (AUTO) 0.6 X10'3 (0-0.9); NEUTROPHILS # (AUTO) 2.9 X10'3 (1.8-7.7); NEUTROPHILS % (AUTO) 61.3 % (42-75); PLATELET COUNT 268 X10'3 (140-440); RED BLOOD COUNT 2.34 X10'6 (4.20-5.60); RED CELL DISTRIBUTION WIDTH 13.6 % (11.5-14.5); WHITE BLOOD COUNT 4.7 X10'3 (4.5-11.0)
[2020-03-21 20:33] LABS: UA COLLECTION TYPE CLN CATCH MIDSTREAM; URINE AMPHETAMINE SCREEN POSITIVE (Neg); URINE BARBITUATE SCREEN NEGATIVE (Neg); URINE BENZODIAZEPINES SCREEN NEGATIVE (Neg); URINE CANNABINOID SCREEN POSITIVE (Neg); URINE COCAINE SCREEN NEGATIVE (Neg); URINE METHADONE SCREEN NEGATIVE (Neg); URINE OPIATE SCREEN NEGATIVE (Neg); URINE PHENCYCLIDINE SCREEN NEGATIVE (Neg)
[2020-03-21 20:34] LABS: BACTERIA,URINE 4+ /HPF (Neg); RBC,URINE 0-2 /HPF (0-2); SQUAMOUS EPITHELIAL CELL,UR MODERATE /LPF (FEW); WBC,URINE 0-4 /HPF (0-4)
[2020-03-21 20:40] LABS: ALANINE AMINOTRANSFERASE 65 U/L (12-78); ALBUMIN/GLOBULIN RATIO 1.1 (1.1-1.5); ALKALINE PHOSPHATASE 92 IU/L (46-116); ANION GAP 11 (8-16); ASPARTATE AMINO TRANSFERASE 53 U/L (10-37); BILIRUBIN,TOTAL 0.4 MG/DL (0.1-1.0); BLOOD UREA NITROGEN 36 MG/DL (7-18); CALCIUM 9.9 MG/DL (8.5-10.1); CHLORIDE 100 MMOL/L (99-107); CREATININE 2.25 MG/DL (0.40-0.90); GLUCOSE 120 MG/DL (70-104); POTASSIUM 4.2 MMOL/L (3.5-5.1); SODIUM 139 MMOL/L (135-145); TOTAL CARBON DIOXIDE 27.7 MMOL/L (24-32); TOTAL PROTEIN 7.8 G/DL (6.4-8.2); eGFR 21 ML/MIN
[2020-03-21 20:44] LABS: ETHANOL < 0.010 GM/DL (0.0-0.010); TROPONIN I < 0.04 NG/ML (0.0-0.05)
--- NOTE | 2020-03-21 20:53 | NUR ---
Verbal ok from Dr. Thompson to d/c IV fluids and give patient PO. Pt tolerating fluids PO and has had 36oz of water.
--- NOTE | 2020-03-24 11:22 | NUR ---
Patient called due to positive UA and needs to be placed on Bactrim DS 1 tab PO BID x 7 days Disp #[address] Clifford Duvall. Patient was called and went to voicemail. Patients voicemail is on set up to take messages. Letter sent.
== END 2020-03-21 22:09 | disposition home or self-care (01) ==
LOC: ER 18:55
DX: F15.10 Other stimulant abuse, uncomplicated (principal); D53.9 Nutritional anemia, unspecified; I10 Essential (primary) hypertension; F41.9 Anxiety disorder, unspecified; F32.9 Major depressive disorder, single episode, unspecified; Z86.69 Personal history of other diseases of the nervous system and sense organs; Z90.89 Acquired absence of other organs; Z98.890 Other specified postprocedural states; Z72.89 Other problems related to lifestyle; Z79.899 Other long term (current) drug therapy
CPT/HCPCS: 36415; 71045; 80053; 80305; 80320; 81001; 84484; 85025; 87077; 87088; 87186; 93005; 99285

== ENCOUNTER 2020-06-26 20:46 | Emergency (ER) | payer MEDICARE, MEDICAID ==
[~2020-06-26] VITALS: Ht 160 cm; Wt 53.6 kg
[~2020-06-26 20:46] MED LIST changes: -ACET-812 PO; -CALC-854 PO; +CHOL500050 PO; +DONE-46 PO; -FOLI0.4T2 PO; -LISI-600 PO; +LISI20TA28 PO; +LORA10TA7 PO; -SIMV-42 PO; -VITA1TAB37 PO
[2020-06-26 20:54] VITALS: BP 139/76
== END 2020-06-26 23:55 | disposition home or self-care (01) ==
LOC: ER 20:46
DX: R51.9 Headache, unspecified (principal); Z00.00 Encounter for general adult medical examination without abnormal findings; G30.9 Alzheimer's disease, unspecified; F02.80 Dementia in other diseases classified elsewhere, unspecified severity, without behavioral disturbance, psychotic disturbance, mood disturbance, and anxiety; G40.909 Epilepsy, unspecified, not intractable, without status epilepticus; I10 Essential (primary) hypertension; Z72.89 Other problems related to lifestyle; Z79.899 Other long term (current) drug therapy
CPT/HCPCS: 93005; 99283

== ENCOUNTER 2020-08-27 11:40 | Emergency (ER) | payer MEDICARE, MEDICAID ==
[~2020-08-27] VITALS: Ht 144.8 cm; Wt 54.5 kg
[~2020-08-27 11:40] MED LIST changes: +FURO40TA4 PO; +MULT-25 PO; +PANT40TA54 PO; +thiamine tablet PO
[2020-08-27 13:08] LABS: BASOPHILS # (AUTO) 0.1 X10'3 (0-0.2); BASOPHILS % (AUTO) 1.5 % (0-1); EOSINOPHILS # (AUTO) 0.3 X10'3 (0-0.9); EOSINOPHILS % (AUTO) 3.5 % (0-6); HEMATOCRIT 31.6 % (35.0-45.0); HEMOGLOBIN 10.6 g/dl (12.0-16.0); LYMPHOCYTES % (AUTO) 14.2 % (21-51); MEAN CORPUSCULAR HEMOGLOBIN 33.1 PG (27.0-31.0); MEAN CORPUSCULAR HGB CONC 33.5 g/dL (33.0-36.5); MEAN CORPUSCULAR VOLUME 98.7 FL (78-98); MEAN PLATELET VOLUME 7.6 FL (7.4-10.4); MONOCYTES % (AUTO) 13.7 % (2-12); NEUTROPHILS # (AUTO) 4.9 X10'3 (1.8-7.7); NEUTROPHILS % (AUTO) 67.1 % (42-75); PLATELET COUNT 237 X10'3 (140-440); RED CELL DISTRIBUTION WIDTH 18.9 % (11.5-14.5); WHITE BLOOD COUNT 7.3 X10'3 (4.5-11.0)
[2020-08-27 13:20] LABS: ALANINE AMINOTRANSFERASE 14 U/L (12-78); ALBUMIN 2.2 G/DL (3.4-5.0); ALBUMIN/GLOBULIN RATIO 0.5 (1.1-1.5); ALKALINE PHOSPHATASE 70 IU/L (46-116); ANION GAP 8 (8-16); ASPARTATE AMINO TRANSFERASE 7 U/L (10-37); BILIRUBIN,TOTAL 0.4 MG/DL (0.1-1.0); BLOOD UREA NITROGEN 8 MG/DL (7-18); BUN/CREATININE RATIO 6.5 (6.6-38.0); CALCIUM 8.3 MG/DL (8.5-10.1); CHLORIDE 106 MMOL/L (99-107); CREATININE 1.23 MG/DL (0.40-0.90); GLUCOSE 88 MG/DL (70-104); POTASSIUM 3.9 MMOL/L (3.5-5.1); SODIUM 136 MMOL/L (135-145); TOTAL CARBON DIOXIDE 22.2 MMOL/L (24-32); TOTAL PROTEIN 6.6 G/DL (6.4-8.2); eGFR 43 ML/MIN
[2020-08-27 13:31] LABS: ETHANOL < 0.010 GM/DL (0.0-0.010)
[2020-08-27 13:34] LABS: CLARITY,URINE CLEAR (Clear); COLOR,URINE YELLOW (Yellow); GLUCOSE, URINE NEGATIVE (Neg); KETONES,URINE NEGATIVE (Neg); LEUKOCYTE ESTERASE ,URINE TRACE (Neg); NITRITES, URINE NEGATIVE (Neg); OCCULT BLOOD,URINE NEGATIVE (Neg); PROTEIN,URINE NEGATIVE (Neg); UROBILINOGEN,URINE 0.2 E.U/dL (0.2-1.0)
[2020-08-27 13:40] LABS: UA COLLECTION TYPE CLN CATCH MIDSTREAM
[2020-08-27 13:46] LABS: SQUAMOUS EPITHELIAL CELL,UR MANY /LPF (FEW); URINE AMPHETAMINE SCREEN NEGATIVE (Neg); URINE BARBITUATE SCREEN NEGATIVE (Neg); URINE BENZODIAZEPINES SCREEN NEGATIVE (Neg); URINE CANNABINOID SCREEN NEGATIVE (Neg); URINE COCAINE SCREEN NEGATIVE (Neg); URINE METHADONE SCREEN NEGATIVE (Neg); URINE OPIATE SCREEN NEGATIVE (Neg); URINE PHENCYCLIDINE SCREEN NEGATIVE (Neg)
[2020-08-27 13:48] LABS: BACTERIA,URINE FEW /HPF (Neg); RBC,URINE NONE SEEN /HPF (0-2)
[2020-08-27 14:20] LABS: PLATELET ESTIMATE NORMAL; POLYCHROMASIA FEW
[2020-08-27 14:21] LABS: SCHISTOCYTES FEW; STOMATOCYTES FEW; TEAR DROP CELLS FEW
[2020-08-27] MEDS ORDERED: FURO40TA4 PO (15:31)
[2020-08-27] MEDS ORDERED: PANT40TA54 PO ×2 (15:38→15:39)
[2020-08-27] MEDS ORDERED: MULT-25 PO (15:38)
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
--- NOTE | 2020-08-27 19:00 | NUR ---
The patient is resting on her bed.
[2020-08-27] MEDS ORDERED: QUEtiapine 25mg tablet PO ONE (19:55)
[2020-08-27] MEDS: busPIRone 15mg tablet PO SCH (20:01)
[2020-08-27] MEDS: furosemide 40mg tablet PO SCH (20:01)
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
--- NOTE | 2020-08-27 22:06 | NUR ---
The patient is awake. She is confused and disorganized. She gets agitated when she tries to get into beds that are not assigned to her and calling the sterilization technician derogatory names.
--- NOTE | 2020-08-27 23:22 | NUR ---
The patient is laying on her bed but awake. She remains confused
--- NOTE | 2020-08-28 01:46 | NUR ---
The patient appears to be sleeping
--- NOTE | 2020-08-28 03:21 | NUR ---
The patient appears to be sleeping
--- NOTE | 2020-08-28 04:51 | NUR ---
The patient appears to be sleeping
--- NOTE | 2020-08-28 06:39 | NUR ---
Patient got up to the bedside commode and then back to sleep. No distress observed at this time. Continue to monitor.
--- NOTE | 2020-08-28 07:45 | NUR ---
Patient continues to sleep on left side. No distress observed. Continue to monitor.
--- NOTE | 2020-08-28 08:30 | NUR ---
Patient did not awaken for breakfast. Patient continues to sleep. Continue to monitor.
[2020-08-28] MEDS: busPIRone 15mg tablet PO SCH ×2 (08:42→19:33)
[2020-08-28] MEDS: furosemide 40mg tablet PO SCH (08:43)
[2020-08-28] MEDS: multivitamins, therapeutics tablet PO SCH (08:43)
[2020-08-28] MEDS: pantoprazole 40mg Tablet.DR PO SCH (08:43)
[2020-08-28] MEDS: cholecalciferol (vitamin D3) 1,000 unit (25mcg) tablet PO SCH (08:43)
[2020-08-28] MEDS: loratadine 10mg tablet PO SCH (08:43)
[2020-08-28] MEDS ORDERED: QUEtiapine 25mg tablet PO PRN (08:50)
--- NOTE | 2020-08-28 10:08 | NUR ---
Patient continues to sleep. Patient was up all night urinating. Continue to monitor.
--- NOTE | 2020-08-28 10:44 | NUR ---
Patient is awake and up to BR. Patient smiling and apologizing for her behavior yesterday. RN heated up breakfast and patient eating. No distress observed. Continue to monitor.
--- NOTE | 2020-08-28 12:21 | NUR ---
Patient sleeping after eating breakfast. No distress observed. Continue to monitor.
--- NOTE | 2020-08-28 13:19 | NUR ---
Patient awoke and eating lunch. No distress observed. Continue to monitor.
--- NOTE | 2020-08-28 13:44 | NUR ---
Patient asked for a juice. Tech gave to patient. No distress observed. Continue to monitor.
--- NOTE | 2020-08-28 15:00 | NUR ---
Breaking primary RN. Pt. asked tech for juice, tech gave pt. juice. Respirtations even and unlabored, speech clear, no apparent distress.
--- NOTE | 2020-08-28 15:10 | NUR ---
Patient asleep. No distress observed. Continue to monitor.
--- NOTE | 2020-08-28 15:28 | NUR ---
Patient resting on right side. No distress observed. Continue to monitor.
--- NOTE | 2020-08-28 15:29 | NUR ---
[facility] No diagnosis of any psych d/o besides depression. On recent [facility] notes a diagnosis of Bipolar d/o is spoken about but RN could not find any diagnosis of Bipolar d/o in her HX. Patient only takes Buspar for anxiety. But Denzel felt she had dementia. Patient has been on Aricept in the past. Denzel also felt as did RN that patient does not meet requirement for a 5150 due to not having a psychiatric diagnosis and patient having dementia. Denzel, [facility], stated he is going to speak to his boss tomorrow and make a decision on what to do about the 5150. Under the present circumstances, patient does not meet criteria and would be very hard to place due to behavior and homelessness. Once the 5150 is removed, [facility] social workers would be able to begin to find her placement and hopefully admit to the medical floor as a social admit.
--- NOTE | 2020-08-28 16:30 | NUR ---
Patient awake and in no distress. Patient thanks staff for their kindness. Continue to monitor.
[2020-08-28] MEDS: furosemide 20MG tablet PO SCH (16:55)
--- NOTE | 2020-08-28 18:19 | NUR ---
Patient eating dinner. No distress observaed.
--- NOTE | 2020-08-28 18:39 | NUR ---
The patient is resting on her bed. She was polite but confused. She was reminded that she is on a 5150 hold and she stated that she was tired of being in the hospital. She was made aware of the plan to review the 5150 process. She was unable to state what year it was. She was evasive and became tense when asked orientation guestions that she was not able to answer. She was made aware that her 5150 was for grave disability and she would be asked to provide a plan for food, longterm or clothing. She stated that she had her own home but was not able to give any details. When asked her address she replied, "I don't know. I have it written down somewhere" She is taking care of her ADLs.
--- NOTE | 2020-08-28 20:07 | NUR ---
The patient appears to be sleeping
--- NOTE | 2020-08-28 22:14 | NUR ---
The patient awake briefly to use the bathroom and have a snack and now is resting on her bed quietly
--- NOTE | 2020-08-29 00:16 | NUR ---
The patient is resting quietly on her bed. She is awake off and on. She remains confused and she does not recall why she is here.
--- NOTE | 2020-08-29 01:44 | NUR ---
The patient up to use the bedside commode and is now resting on her bed.
--- NOTE | 2020-08-29 04:01 | NUR ---
The patient appears to be sleeping
--- NOTE | 2020-08-29 06:38 | NUR ---
Patient awake and laying in bed on left side. No distress observed. Continue to monitor.
--- NOTE | 2020-08-29 08:05 | NUR ---
Patient eating breakfast. No distress observed. Continue to monitor.
[2020-08-29] MEDS: multivitamins, therapeutics tablet PO SCH (08:47)
[2020-08-29] MEDS: furosemide 20MG tablet PO SCH ×2 (08:48→17:06)
[2020-08-29] MEDS: busPIRone 15mg tablet PO SCH ×2 (08:48→20:07)
[2020-08-29] MEDS: loratadine 10mg tablet PO SCH (08:48)
[2020-08-29] MEDS: pantoprazole 40mg Tablet.DR PO SCH (08:48)
[2020-08-29] MEDS: cholecalciferol (vitamin D3) 1,000 unit (25mcg) tablet PO SCH (08:48)
--- NOTE | 2020-08-29 09:42 | NUR ---
Patient sleeping supine. No distress observed. Continue to monitor.
--- NOTE | 2020-08-29 10:53 | NUR ---
Patient is sitting up at the edge of her bed and eating her oatmeal from this morning. Tech had reheated for patient. No distress observed. Continue to monitor.
--- NOTE | 2020-08-29 12:40 | NUR ---
Patient sleeping on right side. No distress observed. Continue to monitor.
--- NOTE | 2020-08-29 14:10 | NUR ---
Denzel PERALTA, giving patient a [facility] Exam. Continue to monitor.
--- NOTE | 2020-08-29 15:33 | NUR ---
Patient sleeping on left side. No distress observed. Continue to monitor.
[2020-08-29] MEDS ORDERED: QUEtiapine 25mg tablet PO PRN (18:10)
--- NOTE | 2020-08-29 19:25 | NUR ---
The patient is disorganized and confused. She currently is calm and accepting redirection. She is confused and stated, "I've already been here 4 hours" She is disoriented to day and date.
[2020-08-29] MEDS: QUEtiapine 25mg tablet PO SCH (20:06)
--- NOTE | 2020-08-29 21:55 | NUR ---
The patient is resting on her bed and appears to be sleeping but she awakens easily. When up to use the bathroom she cannot remember where it is.
--- NOTE | 2020-08-29 23:14 | NUR ---
The patient is resting on her bed but is awake
[2020-08-29] MEDS: QUEtiapine 25mg tablet PO PRN (23:42)
--- NOTE | 2020-08-29 23:45 | NUR ---
The patient is up and increasingly agitated. "I need to leave. I have things to do" Patient redirected. Attempted to reorient patient. Prn Seroquel given
--- NOTE | 2020-08-30 01:15 | NUR ---
The patient is resting on her bed but is awake
--- NOTE | 2020-08-30 02:41 | NUR ---
The patient is resting on her bed with her eyes closed and appears to be asleep. She awakens every few minutes in a confused state.
--- NOTE | 2020-08-30 04:43 | NUR ---
The patient appears to be sleeping
--- NOTE | 2020-08-30 06:30 | NUR ---
Patient awake sitting up in bed, no distress noted. Pt calm and redirectable.
[2020-08-30] MEDS: pantoprazole 40mg Tablet.DR PO SCH (08:26)
[2020-08-30] MEDS: busPIRone 15mg tablet PO SCH ×2 (08:26→20:38)
[2020-08-30] MEDS: furosemide 20MG tablet PO SCH ×2 (08:26→17:49)
[2020-08-30] MEDS: loratadine 10mg tablet PO SCH (08:26)
[2020-08-30] MEDS: multivitamins, therapeutics tablet PO SCH (08:26)
[2020-08-30] MEDS: cholecalciferol (vitamin D3) 1,000 unit (25mcg) tablet PO SCH (08:26)
--- NOTE | 2020-08-30 08:51 | NUR ---
Pt lying on her bed with eyes open in semi-galaviz position . Pt was compliant with medications and 1:1 assessment. When asked how pt was pt stated "My personal life isn't very happy, but I am doing good." Pt asking about watching T.V and points to the light above her bed. Pt will start a conversation then trails off in thought. Pt is confused about the time. After breakfast pt stated "was that dinner?" '
--- NOTE | 2020-08-30 08:56 | NUR ---
PAGE SENT TO LUMBER SORTER MACHINE TO CONSULT WITH PT
--- NOTE | 2020-08-30 10:06 | NUR ---
Patient resting quietly in bed, no signs/symptoms of distress.
[2020-08-30] MEDS: QUEtiapine 25mg tablet PO PRN (11:17)
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
--- NOTE | 2020-08-30 13:40 | NUR ---
[facility] at bedside conducting interview.
--- NOTE | 2020-08-30 13:45 | NUR ---
Pt was declined at [facility].
--- NOTE | 2020-08-30 14:22 | NUR ---
Pt resting comfortably on left side, appears to be sleeping. No distress noted.
--- NOTE | 2020-08-30 15:00 | NUR ---
[facility] called stated they are sending out packets on pt. Looking at possible long-term care facilities.
--- NOTE | 2020-08-30 16:09 | NUR ---
Pt appears to be sleeping, respirations even and unlabored.
--- NOTE | 2020-08-30 17:04 | NUR ---
DAUGHTER ROBBIE SCHUSTER CALLED [phone] SON, INA IS PT'S POA INA'S NUMBER IS [phone] SOCIAL SECURITY $900.00 A MONTH
--- NOTE | 2020-08-30 19:25 | NUR ---
Patient's son, Herson Ortiz, called to get update on mother's care. Son also requested that he be updated with any kind of pt transfer or discharge. Son's contact number [phone]
[2020-08-30] MEDS: QUEtiapine 25mg tablet PO SCH (20:38)
--- NOTE | 2020-08-31 02:00 | NUR ---
PT TRANSFERED FROM OF ROOM TO MAIN ED BED 10
--- NOTE | 2020-08-31 03:00 | NUR ---
PT SITTING AT EDGE OF BD TALKING WITH SITTER
--- NOTE | 2020-08-31 06:38 | NUR ---
Pt ambulated independently over from main ER to bed 20. Pt was quiet and cooperative. Pt continues to rest while information writer receives report.
--- NOTE | 2020-08-31 08:29 | NUR ---
Patient sleeping, attempted to wake pt for breakfast. Tray set by bedside.
[2020-08-31] MEDS: multivitamins, therapeutics tablet PO SCH (09:29)
[2020-08-31] MEDS: furosemide 20MG tablet PO SCH ×2 (09:29→16:00)
[2020-08-31] MEDS: cholecalciferol (vitamin D3) 1,000 unit (25mcg) tablet PO SCH (09:29)
[2020-08-31] MEDS: loratadine 10mg tablet PO SCH (09:30)
[2020-08-31] MEDS: pantoprazole 40mg Tablet.DR PO SCH (09:30)
[2020-08-31] MEDS: busPIRone 15mg tablet PO SCH ×2 (09:30→19:51)
--- NOTE | 2020-08-31 10:28 | NUR ---
Pt continues to sleep, no distress. Pt ate her breakfast late, but ate 75%.
--- NOTE | 2020-08-31 12:35 | NUR ---
Pt sleeping, rouses to name and is slightly restless. No distress noted.
--- NOTE | 2020-08-31 13:05 | NUR ---
Pt eating lunch, sitting up at bedside.
--- NOTE | 2020-08-31 14:33 | NUR ---
Pt appears to be sleeping on left side. Respirations even and unlabored.
--- NOTE | 2020-08-31 16:40 | NUR ---
Pt lying in bed with eyes open, no distress noted. Pt woke when new admit came in and now sitting on bedside.
--- NOTE | 2020-08-31 17:27 | NUR ---
Pt on phone with son Herson
--- NOTE | 2020-08-31 17:35 | NUR ---
Pt hung up phone stated "my son said he was going to call back." Pt appeared tearful, but when junior technical writer asked if she was okay pt stated "I am strong, I will be okay."
--- NOTE | 2020-08-31 17:57 | NUR ---
Pt consumed 1040 mL of fluids today.
--- NOTE | 2020-08-31 19:13 | NUR ---
The patient is resting on her bed. She is pleasant on approach but only oriented to herself. She has no requests at this time. Spoke with PA regarding TSH and past med hx and orders received.
[2020-08-31] MEDS: QUEtiapine 25mg tablet PO SCH (19:51)
--- NOTE | 2020-08-31 21:03 | NUR ---
The patient is resting on her bed
--- NOTE | 2020-08-31 22:38 | NUR ---
The patient appears to be sleeping
--- NOTE | 2020-08-31 23:55 | NUR ---
The patient is resting on her bed but awake after female peer being loud
--- NOTE | 2020-09-01 01:42 | NUR ---
The patient appears to be sleeping
--- NOTE | 2020-09-01 03:40 | NUR ---
The patient appears to be sleeping
--- NOTE | 2020-09-01 05:10 | NUR ---
The patient appears to have slept well during the night
--- NOTE | 2020-09-01 06:37 | NUR ---
Received patient sleeping at shift change. Pt went to restroom then returned to bed.
--- NOTE | 2020-09-01 08:15 | NUR ---
Pt appears to be sleeping, no distress noted. Breakfast is set at bedside.
[2020-09-01] MEDS: cholecalciferol (vitamin D3) 1,000 unit (25mcg) tablet PO SCH (08:28)
[2020-09-01] MEDS: loratadine 10mg tablet PO SCH (08:28)
[2020-09-01] MEDS: pantoprazole 40mg Tablet.DR PO SCH (08:28)
[2020-09-01] MEDS: multivitamins, therapeutics tablet PO SCH (08:28)
[2020-09-01] MEDS: furosemide 20MG tablet PO SCH ×2 (08:28→16:00)
[2020-09-01] MEDS: busPIRone 15mg tablet PO SCH ×2 (08:28→20:02)
[2020-09-01] MEDS: levoTHYROXINE 25mcg tablet PO SCH (08:29)
--- NOTE | 2020-09-01 08:35 | NUR ---
Patient is at bedside eating breakfast. Pt is in a pleasant mood joking around with securities underwriter. Pt said "look at all these pills, I am a drug addict." She giggles and puts her hand up to her mouth "I'm just kidding." She then said something about control pills and laughed. Pt asked "do I get to leave after I take my pills." Pt ate 100% of her breakfast. When asked if her son called her back last night pt stated "No, my children are busy." Pt has been calm all morning. Continued to encourage fluid intact. Received order for MOM as pt unsure when last BM was and last documented was 08/27. Pt stated "I guess I better do something." Bowel sounds x4, no tenderness with palpation, no distension.
[2020-09-01] MEDS ORDERED: magnesium hydroxide 30ml (MOM) UD suspension PO ONE (10:10)
--- NOTE | 2020-09-01 10:24 | NUR ---
Patient up the bathroom, stated "I look scary." "I need my makeup and hairbrush." Pt was offered a warm tub of water, but said "maybe later."
--- NOTE | 2020-09-01 11:13 | NUR ---
Pt just finished a minimum assist bed bath with a no rinse shampoo cap. Pt brushed teeth and combed hair. She is now resting comfortably.
--- NOTE | 2020-09-01 13:34 | NUR ---
Patient has been up talking with staff telling automobile service writer she was "going man-hunting." For lunch pt ate P-100%; C- 50%. Pt continues to be pleasant, but disorganized. Pt asking when she gets to go home, but the says "I'll get there." Thanks automobile service writer for the hygiene care.
--- NOTE | 2020-09-01 14:15 | NUR ---
Patient up to restroom at this time. Gait steady and balanced, no signs of distress noted, patient back to bed safely.
--- NOTE | 2020-09-01 16:04 | NUR ---
Patient up to restroom then returns to bed, smiles at staff.
--- NOTE | 2020-09-01 16:05 | NUR ---
Pt refused 1600 Lasix, stated "I don't believe in that anymore."
--- NOTE | 2020-09-01 16:30 | NUR ---
Pt continued to refused Lasix. "I like you, but I don't need that." Education was attempted, but pt calmly said "you can go away now."
--- NOTE | 2020-09-01 17:05 | NUR ---
Pt refused vitals both from PCT and newswriter. Pt laying in bed eating a snack, again saying "I don't believe in vitals anymore." Gis Programmer attempted and pt stated firmly "Don't touch me!"
--- NOTE | 2020-09-01 17:48 | NUR ---
Patient continued to refuse vitals and medication. Addendum: 09/01/20 at 1749 by JUANCARLOS Pt stated "get away from me and go talk to someone else."
--- NOTE | 2020-09-01 18:41 | NUR ---
The patient is on her bed and was quietly eating dinner. She is suspicious and paranoid but unable to articulate exactly why. She is aware that her thoughts are confused. She is concerned about not having a bowel movement but she was reminded that she had been given MOM earlier in the day. She has a poor appetite and only ate her cake. She does eat snacks during the day. She stated she did not care for the food on her tray. She is taking care of her ADLs.
[2020-09-01] MEDS: QUEtiapine 25mg tablet PO SCH (20:02)
--- NOTE | 2020-09-01 20:26 | NUR ---
The patient is pleasantly confused. She took her evening medications and had a snack and appears to be asleep at this time
--- NOTE | 2020-09-01 22:00 | NUR ---
The patient awake and up at the station and stating she was having company coming in one hour. She is disoriented.
--- NOTE | 2020-09-01 22:46 | NUR ---
The patient is awake and irritable. She is making paranoid statements
--- NOTE | 2020-09-01 23:49 | NUR ---
The patient appears to be sleeping
--- NOTE | 2020-09-02 01:52 | NUR ---
The patient appears to be sleeping
--- NOTE | 2020-09-02 04:20 | NUR ---
The patient was awake briefly and walked around the unit and asked about a closed door but then went right back to bed
--- NOTE | 2020-09-02 07:00 | NUR ---
Received pt asleep in bed in no apparent distress.
[2020-09-02] MEDS: multivitamins, therapeutics tablet PO SCH (07:58)
[2020-09-02] MEDS: pantoprazole 40mg Tablet.DR PO SCH (07:58)
[2020-09-02] MEDS: furosemide 20MG tablet PO SCH ×2 (07:58→16:00)
[2020-09-02] MEDS: cholecalciferol (vitamin D3) 1,000 unit (25mcg) tablet PO SCH (07:58)
[2020-09-02] MEDS: loratadine 10mg tablet PO SCH (07:58)
[2020-09-02] MEDS: busPIRone 15mg tablet PO SCH ×2 (07:58→20:51)
[2020-09-02] MEDS: levoTHYROXINE 25mcg tablet PO SCH (07:58)
--- NOTE | 2020-09-02 09:00 | NUR ---
Pt awoke around 0730, brushed her teeth with encouragement from nurse and was cooperative with am assessment. Pt is A/O to person only. Pt ate breakfast, was cooperative with am medications and has returned to lying with eyes closed in no distress.
--- NOTE | 2020-09-02 11:00 | NUR ---
Pt up visiting with a peer. Pt smiling and appears happy.
--- NOTE | 2020-09-02 13:00 | NUR ---
Pt visiting with peers at times while walking around the unit. Pt pleasant and redirectable.
--- NOTE | 2020-09-02 15:00 | NUR ---
Pt sitting at bedside. Pt confused and stated, "I'm your mother!" "Where are Herson and Adelfo?" When staff said, "I don't know who Herson or Adelfo is", pt began crying and saying, "you guys are fucking with me!" Pt given hot chocolate and pt was successfully distracted.
--- NOTE | 2020-09-02 17:00 | NUR ---
Attempted to give pt her lasix and 12.5 seroquel. Both nurses attempted, but pt refused. She was acting very paranoid, but she was calm with an angry affect.
--- NOTE | 2020-09-02 20:00 | NUR ---
During 1:1 bedside assessment, pt denies SI/SH/HI/AVH. Endorses having anxiety and depression and states "its not like me- I dont like it." Pt self reports "i'm getting out of here tomorrow one way or another" but is easily redirected. Pt has loud voice and is reminded a few times during shift to use her inside voice. Pt is intrustive and asks other pts "what are you laughing at. why are you here." and is redirected to focus on her own care. Pt is impulsive with thoughts about leaving and yelling about leaving but is easily redirectable.
[2020-09-02] MEDS: QUEtiapine 25mg tablet PO SCH (20:51)
--- NOTE | 2020-09-02 21:23 | NUR ---
pt appears to be responding to internal stimuli AEB talking to herself frequently and carrying conversations by herself. Is calm and cooperative
--- NOTE | 2020-09-02 21:45 | NUR ---
pt wandering around unit door checking "to throw things away." pt is disorganized and continues talking to herself. is easily redirectable back to bed.
[2020-09-02] MEDS: QUEtiapine 25mg tablet PO PRN (23:48)
--- NOTE | 2020-09-03 01:05 | NUR ---
Pt standing by curtain threatening to "run away and find the officers". Pt hostile and difficult to redirect. eventually pt was redirected back to her bed and is sitting at bedside talking to self, occasionally yelling out. seen talking and laughing to self, pt has smeared white toothpaste around her lips "its lipstick." when redirecting pt, pt responds "I dont need you. run home little girl. go away"
--- NOTE | 2020-09-03 01:20 | NUR ---
pt up and standing by the exit curtain threatening to leave and stating "put your hands on me. i dare you. call the metaphysics teacher. arrest me. youre trying to kill me and my sons." pt entering other patient rooms and yelling at staff. will not redirect. security called and at bedside. pt posturing and threatening and continuing to refuse to return to her room. edmd baorlin made aware of pt behavior and haldol IM ordered by dallin and given. pt now lying in bed talking to self.
[2020-09-03] MEDS ORDERED: haloperidol lactate 5mg/ml inj IM ONE (01:25)
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
--- NOTE | 2020-09-03 02:03 | NUR ---
per edmd baehr order 2.5 of versed im x1 dose now and x1 additional dose after if necessary. order placed as received
[2020-09-03] MEDS ORDERED: MIDAZolam 1 MG/ML 5ML VIAL IM ONE (02:05)
[2020-09-03] MEDS ORDERED: midazolam 1 mg/ML 2ml injection IM ONE (02:10)
--- NOTE | 2020-09-03 03:20 | NUR ---
pt appears to be sleeping peacefully in bed on right side. respirations equal and unlabored with no s/s respiratory distress.
[2020-09-03] MEDS: pantoprazole 40mg Tablet.DR PO SCH (09:30)
[2020-09-03] MEDS: loratadine 10mg tablet PO SCH (09:30)
[2020-09-03] MEDS: levoTHYROXINE 25mcg tablet PO SCH (09:30)
[2020-09-03] MEDS: cholecalciferol (vitamin D3) 1,000 unit (25mcg) tablet PO SCH (09:30)
[2020-09-03] MEDS: multivitamins, therapeutics tablet PO SCH (09:30)
[2020-09-03] MEDS: furosemide 20MG tablet PO SCH ×2 (09:31→16:13)
[2020-09-03] MEDS: busPIRone 15mg tablet PO SCH ×2 (09:33→19:51)
--- NOTE | 2020-09-03 10:00 | NUR ---
Pt went to the bathroom and proceeded to go out the back door into the hallway. Lucy Cheek went to get pt. Pt was just curious where the door led to and was easily directable back to OF unit and her bed.
--- NOTE | 2020-09-03 12:38 | NUR ---
pt resting on right side rr equal and unlabored
--- NOTE | 2020-09-03 19:00 | NUR ---
Received pt asleep in bed in no apparent distress.
[2020-09-03] MEDS: QUEtiapine 25mg tablet PO SCH (19:51)
[2020-09-03] MEDS ORDERED: docusate sod 100mg capsule PO ONE (20:00)
--- NOTE | 2020-09-03 21:00 | NUR ---
Pt sat and watched some televison for awhile and then was cooperative taking medications.
--- NOTE | 2020-09-03 23:00 | NUR ---
Pt sleeping without signs of distress.
--- NOTE | 2020-09-04 01:00 | NUR ---
Pt awoke x 1 and said something to the nurse, but we couldn't understand. It seemed to not make sense and then she smiled and went back to sleep.
--- NOTE | 2020-09-04 03:00 | NUR ---
Pt up to use the bathroom x 1 then returned to sleep.
--- NOTE | 2020-09-04 05:00 | NUR ---
Pt sleeping without signs of distress.
[2020-09-04] MEDS: levoTHYROXINE 25mcg tablet PO SCH (07:00)
--- NOTE | 2020-09-04 07:00 | NUR ---
pt is sleeping no concerns at this time
[2020-09-04] MEDS: pantoprazole 40mg Tablet.DR PO SCH (08:35)
[2020-09-04] MEDS: multivitamins, therapeutics tablet PO SCH (08:35)
[2020-09-04] MEDS: furosemide 20MG tablet PO SCH ×2 (08:35→16:31)
[2020-09-04] MEDS: cholecalciferol (vitamin D3) 1,000 unit (25mcg) tablet PO SCH (08:35)
[2020-09-04] MEDS: busPIRone 15mg tablet PO SCH ×2 (08:40→20:10)
[2020-09-04] MEDS: loratadine 10mg tablet PO SCH (08:40)
--- NOTE | 2020-09-04 09:00 | NUR ---
pt is eating breakfast
--- NOTE | 2020-09-04 10:02 | NUR ---
pt is on the phone with her son
--- NOTE | 2020-09-04 11:00 | NUR ---
pt is resting
--- NOTE | 2020-09-04 12:00 | NUR ---
pt ambulate to the bathroom independently
--- NOTE | 2020-09-04 13:00 | NUR ---
pt is resting
--- NOTE | 2020-09-04 14:00 | NUR ---
pt is ambulating around. no issues
--- NOTE | 2020-09-04 15:00 | NUR ---
pt is laying in bed
--- NOTE | 2020-09-04 16:35 | NUR ---
pt laying in bed. pt is putting tooth paste on her lips. informed pt that she was using tooth paste not chapstick but pt wants to continue using the toothpaste
--- NOTE | 2020-09-04 17:42 | NUR ---
pt is sleeping
--- NOTE | 2020-09-04 18:58 | NUR ---
One to one with the patient who was resting on her bed. She is only oriented to self. She is calm.
[2020-09-04] MEDS: QUEtiapine 25mg tablet PO SCH (20:11)
--- NOTE | 2020-09-04 21:03 | NUR ---
The patient took her HS medications and approximately 20 minutes later stated good morning to the staff.
--- NOTE | 2020-09-04 22:30 | NUR ---
The patient is sitting up in her bad and is disoriented
--- NOTE | 2020-09-05 00:01 | NUR ---
The patient is awake and confused. Attempted to reorient her but patient has very poor short term memory.
--- NOTE | 2020-09-05 01:44 | NUR ---
The patient appears to be sleeping
--- NOTE | 2020-09-05 04:32 | NUR ---
The patient is awake and eating a snack
[2020-09-05] MEDS: furosemide 20MG tablet PO SCH ×2 (07:30→15:32)
[2020-09-05] MEDS: levoTHYROXINE 25mcg tablet PO SCH (07:30)
[2020-09-05] MEDS: multivitamins, therapeutics tablet PO SCH (07:30)
[2020-09-05] MEDS: pantoprazole 40mg Tablet.DR PO SCH (07:30)
[2020-09-05] MEDS: busPIRone 15mg tablet PO SCH ×2 (07:30→19:23)
[2020-09-05] MEDS: cholecalciferol (vitamin D3) 1,000 unit (25mcg) tablet PO SCH (07:30)
[2020-09-05] MEDS: loratadine 10mg tablet PO SCH (07:30)
--- NOTE | 2020-09-05 07:30 | NUR ---
PT AWAKE SITTING ON EDGE OF BED. PT HAS AMBULATED TO BATHROOM AND REMAINS CALM AND COOPERATIVE.
--- NOTE | 2020-09-05 09:30 | NUR ---
PT REQUESTED ANOTHER CUP OF COFFEE, COFFEE AND CREAM GIVEN PER PT REQUEST.
--- NOTE | 2020-09-05 10:39 | NUR ---
SS PAGED AND LEFT MSG REQUESTING UPDATE FOR PT DC PLAN
--- NOTE | 2020-09-05 10:44 | NUR ---
SENT PAGE TO [facility]LTIM[facility] REFEREE, ASKING FOR A STATUS UPDATE ON PT
--- NOTE | 2020-09-05 11:47 | NUR ---
SPOKE WITH LYN FROM . PACKETS HAVE BEEN SENT OUT SEEKING HOUSING/PLACEMENT FOR PT. PTS FAMILY HAS BEEN SPOKE WITH AND PTS CHILDREN ARE UNABLE TO CARE AND HOUSE PT.
--- NOTE | 2020-09-05 15:15 | NUR ---
PT WITH POOR SHORT TERM MEMORY AND REQUIRES FREQUENT REMINDERS OF WHERE SHE IS AT AND SHE IS HERE. PT REMINDED WE ARE TRYING TO ASSIST FINDING HER A PLACE TO STAY AND MEANWHILE SHE IS STAYING HERE IN A SAFE ENVIRONMENT.
[2020-09-05] MEDS: QUEtiapine 25mg tablet PO PRN (15:31)
--- NOTE | 2020-09-05 19:15 | NUR ---
The patient is up on the unit and tries to socialize with peers but she is so confused what she says often doesn't make sense so it leaves her peers puzzled as to what she is trying to state. She is only oriented to self. She frequently is unable to remember where her bed is or where the bathroom is. She is accepting redirection.
[2020-09-05] MEDS: QUEtiapine 25mg tablet PO SCH (19:23)
[2020-09-05] MEDS ORDERED: LORazepam 0.5 MG tablet PO ONE (23:40)
[2020-09-05] MEDS ORDERED: quetiapine 100mg tablet PO ONE (23:40)
[2020-09-05] MEDS ORDERED: QUEtiapine 25mg tablet PO ONE (23:45)
--- NOTE | 2020-09-05 23:48 | NUR ---
The patient has been restless and confused. She continues to attempt postive interactions with others. She believes that the tight cooper is her son and is waiting for him to take her to dinner. She is easily distracted by other tasks. She did attempt to leave the overflow area to "stay with my mother" but was convinced by her "son" to stay the night. Discussed with Dr. Duvall and orders received.
--- NOTE | 2020-09-06 01:31 | NUR ---
The patient has been wandering around by her bed and up to the nursing station. She currently appears to be back asleep.
--- NOTE | 2020-09-06 03:27 | NUR ---
The patient continue to be awake, confused and wandering around the unit. She is accepting redirection
--- NOTE | 2020-09-06 04:59 | NUR ---
The patient has been awake for the majority of the night. She now appears to be sleeping
--- NOTE | 2020-09-06 07:30 | NUR ---
Pt sleeping, effortless respirations observed and seen repositioning in bed. Report from NOCs RN pt was restless and awake throughout night and did not go to bed until around 4AM, will let pt continue to sleep.
[2020-09-06] MEDS: levoTHYROXINE 25mcg tablet PO SCH (08:21)
[2020-09-06] MEDS: cholecalciferol (vitamin D3) 1,000 unit (25mcg) tablet PO SCH (08:21)
[2020-09-06] MEDS: pantoprazole 40mg Tablet.DR PO SCH (08:21)
[2020-09-06] MEDS: furosemide 20MG tablet PO SCH ×2 (08:22→16:00)
[2020-09-06] MEDS: loratadine 10mg tablet PO SCH (08:22)
[2020-09-06] MEDS: busPIRone 15mg tablet PO SCH ×2 (08:22→20:03)
[2020-09-06] MEDS: multivitamins, therapeutics tablet PO SCH (08:22)
--- NOTE | 2020-09-06 08:25 | NUR ---
Pt at bedside eating breakfast tray.
--- NOTE | 2020-09-06 10:30 | NUR ---
Pt remains calm and cooperative. Pt has been OOB and paced in front of nurses station and now sitting on bed.
--- NOTE | 2020-09-06 13:13 | NUR ---
Pt sitting on edge of bed eating lunch tray.
--- NOTE | 2020-09-06 14:16 | NUR ---
Pt taken and assisted by retread technician to shower. Pt showered, washed hair and with fresh clean scrubs. Pt brought back to room and now in bed with freshly changed linen and warm blankets.
--- NOTE | 2020-09-06 15:00 | NUR ---
Pt sleeping without complaints or signs of distress.
--- NOTE | 2020-09-06 17:00 | NUR ---
Pt remains sleeping without complaints or signs of distress.
--- NOTE | 2020-09-06 17:52 | NUR ---
ADVISED NOT TO TAKE VITALS AT THIS TIME. VITALS WILL BE TAKEN WHEN PT AWAKES.
--- NOTE | 2020-09-06 18:37 | NUR ---
The patient was resting on her bed and appeared to be sleeping at change of shift. She woke up and greeted the staff, "good morning" She was reoriented to time of day. She was up to use the bathroom but had difficulty finding her way back to her bed without prompts from staff. She is only oriented to self.
[2020-09-06] MEDS: QUEtiapine 25mg tablet PO SCH (20:03)
--- NOTE | 2020-09-06 20:19 | NUR ---
The patient appears to be sleeping
--- NOTE | 2020-09-06 21:16 | NUR ---
THe patient appears to be sleeping
--- NOTE | 2020-09-06 22:42 | NUR ---
The patient appears to be sleeping
--- NOTE | 2020-09-07 00:05 | NUR ---
The patient is awake but confused
--- NOTE | 2020-09-07 01:42 | NUR ---
The patient appears to be sleeping
[2020-09-07] MEDS ORDERED: LORazepam 1 MG tablet PO ONE (02:55)
--- NOTE | 2020-09-07 03:15 | NUR ---
The patient was awakened by another patient. She remained calm, used the bathroom and is back resting on her bed.
--- NOTE | 2020-09-07 04:33 | NUR ---
The patient appears to be sleeping
--- NOTE | 2020-09-07 07:30 | NUR ---
Pt been soundly sleeping this AM.
--- NOTE | 2020-09-07 08:25 | NUR ---
Pt awake and eating breakfast at bedside.
[2020-09-07] MEDS: busPIRone 15mg tablet PO SCH ×2 (08:54→20:02)
[2020-09-07] MEDS: cholecalciferol (vitamin D3) 1,000 unit (25mcg) tablet PO SCH (08:54)
[2020-09-07] MEDS: loratadine 10mg tablet PO SCH (08:54)
[2020-09-07] MEDS: pantoprazole 40mg Tablet.DR PO SCH (08:55)
[2020-09-07] MEDS: multivitamins, therapeutics tablet PO SCH (08:55)
[2020-09-07] MEDS: furosemide 20MG tablet PO SCH ×2 (08:55→16:23)
[2020-09-07] MEDS: levoTHYROXINE 25mcg tablet PO SCH (08:55)
[2020-09-07] MEDS: QUEtiapine 25mg tablet PO PRN (08:56)
--- NOTE | 2020-09-07 10:30 | NUR ---
Pt remains calm, cooperative and remains pleasantly forgetful. Pt given frequent reminders of where she is at and why she is here.
--- NOTE | 2020-09-07 13:15 | NUR ---
Pt at bedside eating lunch tray
--- NOTE | 2020-09-07 15:30 | NUR ---
Pts son Adelfo is here visiting pt at bedside.
--- NOTE | 2020-09-07 15:32 | NUR ---
PT'S SON TEAGAN IS HERE VISITING WITH PT.
--- NOTE | 2020-09-07 16:15 | NUR ---
Pts son Adelfo left contact phone #s Pts sons phone #s : Adelfo cell #: Herson cell #: Pts "half" sister Roderick cell #:
--- NOTE | 2020-09-07 19:30 | NUR ---
The patient has been resting on her bed. She is asking when she was going to be going to "[facility]" and she was assured that a place is still be sought. She was joking with staff and is polite and pleasant.
[2020-09-07] MEDS: QUEtiapine 25mg tablet PO SCH (20:03)
--- NOTE | 2020-09-07 21:06 | NUR ---
The patient appears to be sleeping
--- NOTE | 2020-09-07 22:34 | NUR ---
The patient is awake after being disturbed by peer. She is quietly sitting at the bedside and having a snack.
--- NOTE | 2020-09-07 23:44 | NUR ---
The patient is resting on her bed watching TV
[2020-09-08] MEDS ORDERED: quetiapine 100mg tablet PO ONE (00:10)
[2020-09-08] MEDS ORDERED: QUEtiapine 25mg tablet PO ONE (00:25)
--- NOTE | 2020-09-08 02:02 | NUR ---
The patient has been awake 2nd to an agitated peer screaming but she is polite
--- NOTE | 2020-09-08 04:07 | NUR ---
The patient has been awake the majority of the night 2nd to disruption with another peer. She currently appears to be asleep.
--- NOTE | 2020-09-08 07:05 | NUR ---
PT UP TO BR. NO NEEDS AT THIS TIME
[2020-09-08] MEDS: levoTHYROXINE 25mcg tablet PO SCH (08:14)
[2020-09-08] MEDS: cholecalciferol (vitamin D3) 1,000 unit (25mcg) tablet PO SCH (08:14)
[2020-09-08] MEDS: pantoprazole 40mg Tablet.DR PO SCH (08:15)
[2020-09-08] MEDS: loratadine 10mg tablet PO SCH (08:16)
[2020-09-08] MEDS: furosemide 20MG tablet PO SCH ×2 (08:16→16:00)
[2020-09-08] MEDS: busPIRone 15mg tablet PO SCH ×2 (08:18→20:09)
[2020-09-08] MEDS: multivitamins, therapeutics tablet PO SCH (08:18)
[2020-09-08] MEDS: QUEtiapine 25mg tablet PO PRN (08:29)
--- NOTE | 2020-09-08 08:43 | NUR ---
PT AWAKE EATING BREAKFAST. PT REQUESTED SOMTHEING FOR ANXIETY. SERIQUIL 12.5 MG GIVEN
--- NOTE | 2020-09-08 10:44 | NUR ---
PT RESTING ON RIGHT SIDE RR EQUAL AND UNLABORED.
--- NOTE | 2020-09-08 14:27 | NUR ---
UP TO BR
--- NOTE | 2020-09-08 15:35 | NUR ---
LYN FROM [facility] CALLED WITH UPDATE. EDIL DONIS IN THE [facility] AREA IS LOOKING AT PT FOR POSSIBLE PLACEMENT. PTS INFO IS ALSO AT OTHER FACILITIES. CONTINUE TO AWAIT PLACEMENT
--- NOTE | 2020-09-08 17:12 | NUR ---
PT RESTING WITH EYES CLOSED RR EQUAL AND UNLABORED WILL GIVE LASIX WHEN PT WAKES UP
--- NOTE | 2020-09-08 20:00 | NUR ---
Pt up and ambulating on unit. No complaints voiced or reported. Pt easily redirectable.
[2020-09-08] MEDS: QUEtiapine 25mg tablet PO SCH (20:09)
--- NOTE | 2020-09-08 22:05 | NUR ---
Pt sleeping. + rise and fall of chest noted.
--- NOTE | 2020-09-09 00:05 | NUR ---
Pt up to restroom. Ambulatory with steady gait. No problems voiced or reported.
--- NOTE | 2020-09-09 02:07 | NUR ---
Pt sleeping. + rise and fall of chest noted.
--- NOTE | 2020-09-09 04:00 | NUR ---
Pt up and ambulatory to restroom. Pt asked when breakfast was being served because she "hadn't had anything to eat all day." Advised pt it was still 4am and that she had dinner, yet it was not breakfast time until 0700. Pt then went back to bed and fell asleep.
--- NOTE | 2020-09-09 06:06 | NUR ---
Pt awake and sitting up in bed, asking where there is a phone she can use and when breakfast is coming. Pt easily redirectable.
--- NOTE | 2020-09-09 06:25 | NUR ---
pt sitting up in bed, walked to bed 22 and spoke with him.
[2020-09-09] MEDS: multivitamins, therapeutics tablet PO SCH (08:07)
[2020-09-09] MEDS: cholecalciferol (vitamin D3) 1,000 unit (25mcg) tablet PO SCH (08:07)
[2020-09-09] MEDS: levoTHYROXINE 25mcg tablet PO SCH (08:08)
[2020-09-09] MEDS: busPIRone 15mg tablet PO SCH ×2 (08:08→19:33)
[2020-09-09] MEDS: furosemide 20MG tablet PO SCH ×2 (08:08→16:04)
[2020-09-09] MEDS: loratadine 10mg tablet PO SCH (08:08)
[2020-09-09] MEDS: pantoprazole 40mg Tablet.DR PO SCH (08:08)
--- NOTE | 2020-09-09 10:31 | NUR ---
pt sleeping on right side no distress noted.
--- NOTE | 2020-09-09 10:54 | NUR ---
pt walked to bathroom, no assistance needed.
--- NOTE | 2020-09-09 12:38 | NUR ---
Patient resting quietly, no signs/symptoms of distress.
--- NOTE | 2020-09-09 14:00 | NUR ---
pt sleeping in bed no distress noted.
--- NOTE | 2020-09-09 15:54 | NUR ---
pt was found in a hallway bed. asked to move back to her own bed. pt complied without incident.
--- NOTE | 2020-09-09 18:30 | NUR ---
ASUMED CARE OF PT FROM [facility], PT IS SLEEPING QUIETLY ON BED
--- NOTE | 2020-09-09 19:24 | NUR ---
PT AMB WITH STEADY GAIT TO RESTROOM WITH REDIRECTION, AT FIRST SHE WAS GOING TO GO IN THE TRASH BAG
--- NOTE | 2020-09-09 19:28 | NUR ---
PT IS EATING LUNCH
[2020-09-09] MEDS: QUEtiapine 25mg tablet PO SCH (19:33)
--- NOTE | 2020-09-09 20:32 | NUR ---
PT MOVED TO ROOM 13
[2020-09-10] MEDS: loratadine 10mg tablet PO SCH (08:12)
[2020-09-10] MEDS: furosemide 20MG tablet PO SCH ×2 (08:12→17:10)
[2020-09-10] MEDS: multivitamins, therapeutics tablet PO SCH (08:12)
[2020-09-10] MEDS: pantoprazole 40mg Tablet.DR PO SCH (08:12)
[2020-09-10] MEDS: cholecalciferol (vitamin D3) 1,000 unit (25mcg) tablet PO SCH (08:12)
[2020-09-10] MEDS: busPIRone 15mg tablet PO SCH ×2 (08:12→20:56)
[2020-09-10] MEDS: levoTHYROXINE 25mcg tablet PO SCH (08:14)
[2020-09-10] MEDS: QUEtiapine 25mg tablet PO SCH (20:56)
--- NOTE | 2020-09-10 21:01 | NUR ---
Patient given a turkey sandwich and cranberry juice and encouraged to eat.
[2020-09-11] MEDS ORDERED: diphenhydrAMINE 25mg capsule PO ONE (01:05)
--- NOTE | 2020-09-11 05:21 | NUR ---
25 mg benadryl not sufficient to encourage sleep
--- NOTE | 2020-09-11 06:47 | NUR ---
Received Pt in room standing by door talking to herself. Pt talked to staff breifly and laid in bed, and remains awake and in no distress.
[2020-09-11] MEDS: levoTHYROXINE 25mcg tablet PO SCH (07:54)
[2020-09-11] MEDS: multivitamins, therapeutics tablet PO SCH (07:54)
[2020-09-11] MEDS: cholecalciferol (vitamin D3) 1,000 unit (25mcg) tablet PO SCH (07:54)
[2020-09-11] MEDS: pantoprazole 40mg Tablet.DR PO SCH (07:55)
[2020-09-11] MEDS: busPIRone 15mg tablet PO SCH ×2 (07:55→20:09)
[2020-09-11] MEDS: loratadine 10mg tablet PO SCH (07:55)
[2020-09-11] MEDS: furosemide 20MG tablet PO SCH ×2 (07:55→16:04)
--- NOTE | 2020-09-11 08:30 | NUR ---
Pt awake and sitting on bed. Pt took AM meds with some encouragement. She refered to this customs entry writer by multiple names of people in her past, and was reminded several times of who this RN was and where she was. Pt has pressured speech and wants to leave, yet eventually cooperative with limits and instructions.
--- NOTE | 2020-09-11 09:30 | NUR ---
Pt cooperative with move to ER overflow. Pt used bathroom and persuaded to return to bed after talking at nurses station.
--- NOTE | 2020-09-11 11:00 | NUR ---
Pt awake and at nurses station. Pt intrusive and requiring redirection often.
--- NOTE | 2020-09-11 14:30 | NUR ---
Pt ate lunch and talked to son on phone. Remains hyperverbal, intrusive.
--- NOTE | 2020-09-11 17:57 | NUR ---
Pt remains hyperverbal and intrusive, standing at nurses station and speaking in a freely associated manner.
--- NOTE | 2020-09-11 18:41 | NUR ---
pt is hyperverbal, disorganized, but pleasant. pt requires a lot of redirection but is easily redirectable. pt talks to people not there and cannot have a linear conversation. pt ate approx half of her dinner. no needs at this time.
--- NOTE | 2020-09-11 19:24 | NUR ---
pt moved to ed bed 13.
[2020-09-11] MEDS: QUEtiapine 25mg tablet PO SCH (20:09)
[2020-09-11] MEDS ORDERED: haloperidol lactate 5mg/ml inj IM ONE (22:50)
--- NOTE | 2020-09-11 23:11 | NUR ---
pt attempted to elope, then attempted to go into other pt's rooms. when attempting to redirect pt back to bed, pt threatened staff. pt given 5 mg haldol, pt accepted meds without issue.
[2020-09-12] MEDS ORDERED: MIDAZolam 5mg/ml 2ml vial IM ONE (01:10)
--- NOTE | 2020-09-12 02:43 | NUR ---
pt is now sleeping, rr unlabored.
--- NOTE | 2020-09-12 07:00 | NUR ---
Pt awoke and was joking and friendly with this RN. Pt cooperative with suggestion to brush teeth. and remained pleasant.
[2020-09-12] MEDS: pantoprazole 40mg Tablet.DR PO SCH (08:11)
[2020-09-12] MEDS: levoTHYROXINE 25mcg tablet PO SCH (08:11)
[2020-09-12] MEDS: busPIRone 15mg tablet PO SCH ×2 (08:11→20:14)
[2020-09-12] MEDS: multivitamins, therapeutics tablet PO SCH (08:12)
[2020-09-12] MEDS: cholecalciferol (vitamin D3) 1,000 unit (25mcg) tablet PO SCH (08:12)
[2020-09-12] MEDS: loratadine 10mg tablet PO SCH (08:12)
[2020-09-12] MEDS: furosemide 20MG tablet PO SCH ×2 (08:12→17:39)
--- NOTE | 2020-09-12 09:00 | NUR ---
Pt had fallen back to sleep, but remained pleasant when awoken to eat breakfast and take medications. Pt cooperative with am assessment.
--- NOTE | 2020-09-12 11:03 | NUR ---
Pt tolerated move from main ER to overflow and returned to sleep without distress.
--- NOTE | 2020-09-12 13:00 | NUR ---
Pt sitting up eating lunch with no complaints.
--- NOTE | 2020-09-12 15:00 | NUR ---
Pt awoke for lunch then sat up for awhile in bed without complaints.
--- NOTE | 2020-09-12 17:00 | NUR ---
Pt sleeping in bed in no apparent distress.
[2020-09-12] MEDS: docusate sod 100mg capsule PO PRN (20:14)
[2020-09-12] MEDS: QUEtiapine 25mg tablet PO SCH (20:14)
--- NOTE | 2020-09-12 20:56 | NUR ---
Pt continues to be confused, took HS meds and points to male tech, "Is he ok? that's my son you know." Assured patient he is ok and she seemed content and went to sleep.
--- NOTE | 2020-09-13 01:23 | NUR ---
Pt laying on her right side resting comfortably, she talks in her sleep intermittently "Can we change the subject?" Pt woke once asking the time and again went back to sleep.
--- NOTE | 2020-09-13 02:04 | NUR ---
Pt is up to use the restroom states "the least you can do is say hello!" I said hello! And asked if she needed anything. Pt states "No, I'm just gonna wait till dinner, theyre just always feeding you here, I love it here!" Pt requested another pitcher of water and returned to bed.
--- NOTE | 2020-09-13 04:23 | NUR ---
pt is laying on her right side appears to be resting comfortably.
--- NOTE | 2020-09-13 05:57 | NUR ---
pt is laying in bed on her right side. Awake, sitting quietly.
--- NOTE | 2020-09-13 07:15 | NUR ---
Pt awake sitting quietly in bed.
[2020-09-13] MEDS: pantoprazole 40mg Tablet.DR PO SCH (08:04)
[2020-09-13] MEDS: loratadine 10mg tablet PO SCH (08:05)
[2020-09-13] MEDS: busPIRone 15mg tablet PO SCH ×2 (08:05→20:09)
[2020-09-13] MEDS: furosemide 20MG tablet PO SCH ×2 (08:05→15:27)
[2020-09-13] MEDS: cholecalciferol (vitamin D3) 1,000 unit (25mcg) tablet PO SCH (08:05)
[2020-09-13] MEDS: multivitamins, therapeutics tablet PO SCH (08:06)
[2020-09-13] MEDS: QUEtiapine 25mg tablet PO PRN (08:06)
[2020-09-13] MEDS: levoTHYROXINE 25mcg tablet PO SCH (08:06)
--- NOTE | 2020-09-13 08:30 | NUR ---
Pt remains calm, cooperative and pleasantly confused.
--- NOTE | 2020-09-13 10:15 | NUR ---
Updated by [employer] that new packet to be sent out as pt was declined placement at prior facility request.
--- NOTE | 2020-09-13 12:09 | NUR ---
Pt laying quietly in bed.
--- NOTE | 2020-09-13 14:45 | NUR ---
Pt coloring and reading magazines at bedside.
[2020-09-13] MEDS: QUEtiapine 25mg tablet PO SCH (20:09)
--- NOTE | 2020-09-13 20:18 | NUR ---
pt is lying in bed, pleasant and cooperative. pt is watching tv, no needs at this time.
--- NOTE | 2020-09-13 22:47 | NUR ---
pt is sleeping, no needs at this time
--- NOTE | 2020-09-14 00:14 | NUR ---
pt continues to sleep, no s/s of distress noted.
--- NOTE | 2020-09-14 01:02 | NUR ---
pt is sleeping, rr unlabored.
--- NOTE | 2020-09-14 03:16 | NUR ---
pt continues to sleep, r/r unlabored, no s/s of distress noted.
--- NOTE | 2020-09-14 06:56 | NUR ---
took report from umm holland. pt is lying in bed on right side, appears asleep at this time. no s/s acute distres. respirations even and unlabored
[2020-09-14] MEDS: pantoprazole 40mg Tablet.DR PO SCH (07:30)
[2020-09-14] MEDS: cholecalciferol (vitamin D3) 1,000 unit (25mcg) tablet PO SCH (07:30)
[2020-09-14] MEDS: furosemide 20MG tablet PO SCH ×2 (07:30→16:00)
[2020-09-14] MEDS: loratadine 10mg tablet PO SCH (07:30)
[2020-09-14] MEDS: levoTHYROXINE 25mcg tablet PO SCH (07:30)
[2020-09-14] MEDS: busPIRone 15mg tablet PO SCH ×2 (07:30→19:49)
[2020-09-14] MEDS: multivitamins, therapeutics tablet PO SCH (07:30)
--- NOTE | 2020-09-14 09:55 | NUR ---
during 1:1 bedside assessment, pt continues to be disorganized and disoriented. pt makes statements such as "did you know my son is in that room?" while pointing to the pt next to her. pt is pleasant, calm, and cooperative and takes morning medications without incident. pt is oriented to name, cannot correctly state any other orientation questions. pt currently sitting in bed peacefully and states "its so nice down here, I can finally hear myself think!"
--- NOTE | 2020-09-14 13:25 | NUR ---
PT ATE 100% OF LUNCH AND SLEEPING NOW
--- NOTE | 2020-09-14 16:50 | NUR ---
pt on lasix with no K. informed dr. laws, please see new order: cmp ordered. lasix held
[2020-09-14 17:36] LABS: ALANINE AMINOTRANSFERASE 10 U/L (12-78); ALBUMIN/GLOBULIN RATIO 0.6 (1.1-1.5); ALKALINE PHOSPHATASE 72 IU/L (46-116); ANION GAP 8 (8-16); ASPARTATE AMINO TRANSFERASE 17 U/L (10-37); BILIRUBIN,TOTAL 0.2 MG/DL (0.1-1.0); BLOOD UREA NITROGEN 38 MG/DL (7-18); BUN/CREATININE RATIO 26.4 (6.6-38.0); CALCIUM 8.9 MG/DL (8.5-10.1); CHLORIDE 93 MMOL/L (99-107); CREATININE 1.44 MG/DL (0.40-0.90); GLUCOSE 117 MG/DL (70-104); POTASSIUM 3.1 MMOL/L (3.5-5.1); SODIUM 132 MMOL/L (135-145); TOTAL CARBON DIOXIDE 30.6 MMOL/L (24-32); eGFR 36 ML/MIN
[2020-09-14] MEDS ORDERED: potassium Cl 20 mEq SR tablet PO STA (18:09)
--- NOTE | 2020-09-14 19:04 | NUR ---
The patient was given KDur 40 MEQ and patient educated regarding medication. She is calm and pleasantly confused. She denies pain or any physical complaints.
[2020-09-14 19:09] LABS: CLARITY,URINE CLEAR (Clear); COLOR,URINE YELLOW (Yellow); GLUCOSE, URINE NEGATIVE (Neg); KETONES,URINE NEGATIVE (Neg); LEUKOCYTE ESTERASE ,URINE NEGATIVE (Neg); NITRITES, URINE NEGATIVE (Neg); OCCULT BLOOD,URINE NEGATIVE (Neg); PROTEIN,URINE NEGATIVE (Neg); UROBILINOGEN,URINE 0.2 E.U/dL (0.2-1.0)
[2020-09-14 19:14] LABS: UA COLLECTION TYPE CLN CATCH MIDSTREAM
[2020-09-14] MEDS: docusate sod 100mg capsule PO PRN (19:49)
[2020-09-14] MEDS: QUEtiapine 25mg tablet PO SCH (19:50)
--- NOTE | 2020-09-14 21:11 | NUR ---
The patient is resting on her bed but is awake
--- NOTE | 2020-09-14 23:01 | NUR ---
The patient is resting on her bed but awake
--- NOTE | 2020-09-15 01:11 | NUR ---
The patient appears to be sleeping
--- NOTE | 2020-09-15 03:05 | NUR ---
The patient appears to be sleeping
--- NOTE | 2020-09-15 04:36 | NUR ---
The patient appears to be sleeping
--- NOTE | 2020-09-15 07:00 | NUR ---
Pt. is awake and lying supine in bed. Pt. is social on approach and pleasantly confused, stating, "It's been a nice stay, but I think i will be going home today".
[2020-09-15] MEDS: levoTHYROXINE 25mcg tablet PO SCH (07:41)
[2020-09-15] MEDS: multivitamins, therapeutics tablet PO SCH (07:48)
[2020-09-15] MEDS: furosemide 20MG tablet PO SCH ×2 (07:48→16:19)
[2020-09-15] MEDS: busPIRone 15mg tablet PO SCH ×2 (07:48→19:47)
[2020-09-15] MEDS: cholecalciferol (vitamin D3) 1,000 unit (25mcg) tablet PO SCH (07:48)
[2020-09-15] MEDS: loratadine 10mg tablet PO SCH (07:48)
[2020-09-15] MEDS: pantoprazole 40mg Tablet.DR PO SCH (07:48)
--- NOTE | 2020-09-15 08:49 | NUR ---
pt relaxing in bed ,no sign of distress noted,breaking primary nurse at this time.
--- NOTE | 2020-09-15 09:00 | NUR ---
1:1 interview done at bedside. Pt. is pleasantly confused. Pt. denies SI/HI, A/V hallucinations. Pt. reports that she is ready to go home, when RN infromed pt. that she is in the hospital, pt. states, "I'm just visiting". Pt. asks, "Do you know my mother and my father, you probably do, they are here right now".
[2020-09-15] MEDS ORDERED: magnesium oxide 400mg tablet PO ONE (09:20)
[2020-09-15] MEDS ORDERED: potassium Cl 20 mEq SR tablet PO ONE (09:20)
--- NOTE | 2020-09-15 11:00 | NUR ---
RN spoke with Dr. Thompson regarding pt.'s BUN increasing to 38 and Creatinine to 1.44. RN informed to encourage PO fluids.
--- NOTE | 2020-09-15 11:00 | NUR ---
Pt. awake and resting in bed on her right side. Normal R&R of repirations noted. Pt. in no apparent distress.
--- NOTE | 2020-09-15 13:01 | NUR ---
Pt. awake and sitting in bed eating lunch.
[2020-09-15] MEDS ORDERED: bisacodyl 5mg tablet.DR PO PRN (14:35)
--- NOTE | 2020-09-15 15:00 | NUR ---
Pt. awake and lying in bed in supine position. Pt. in no apparent distress.
--- NOTE | 2020-09-15 17:00 | NUR ---
Pt. awake in bed lying in supine position. Pt. became paranoid, stating, "Don't give me anymore medications. I'm only going to take medications from my doctor."
[2020-09-15] MEDS ORDERED: QUEtiapine 25mg tablet PO PRN (18:10)
--- NOTE | 2020-09-15 19:22 | NUR ---
The patient presented as irritable and angry during dinner but has since has been calm and is currently resting on his bed.
[2020-09-15] MEDS: docusate sod 100mg capsule PO PRN (19:46)
[2020-09-15] MEDS: QUEtiapine 25mg tablet PO SCH (19:46)
--- NOTE | 2020-09-15 21:00 | NUR ---
The patient appears to be sleeping
--- NOTE | 2020-09-15 22:42 | NUR ---
The patient appears to be sleeping
--- NOTE | 2020-09-16 00:26 | NUR ---
The patient appears to be sleeping
--- NOTE | 2020-09-16 02:02 | NUR ---
The patient up to use the bathroom and is now back in bed
--- NOTE | 2020-09-16 03:45 | NUR ---
The patient appears to be sleeping
--- NOTE | 2020-09-16 07:00 | NUR ---
Pt. awake in bed lying in supine position. Normal R&R of respirations noted. Pt. in no apparent distress.
[2020-09-16] MEDS: levoTHYROXINE 25mcg tablet PO SCH (07:12)
[2020-09-16] MEDS: multivitamins, therapeutics tablet PO SCH (08:15)
[2020-09-16] MEDS: pantoprazole 40mg Tablet.DR PO SCH (08:15)
[2020-09-16] MEDS: loratadine 10mg tablet PO SCH (08:15)
[2020-09-16] MEDS: busPIRone 15mg tablet PO SCH ×2 (08:15→20:11)
[2020-09-16] MEDS: furosemide 20MG tablet PO SCH ×2 (08:15→15:18)
[2020-09-16] MEDS: cholecalciferol (vitamin D3) 1,000 unit (25mcg) tablet PO SCH (08:15)
--- NOTE | 2020-09-16 09:00 | NUR ---
Pt. asleep in bed, lying on her right side. Normal R&R of respirations noted. Pt. in no apparent distress.
--- NOTE | 2020-09-16 11:00 | NUR ---
Pt. is awake and sitting up in bed. 1:1 done at bedside, pt. denies SI/HI, A/V hallucinations. Pt. is pleasantly confused, and states, "I think my children will be picking me up today". Pt. reports she feels happy, states, "I haven't been drinking in 2 weeks now and I feel great!".
--- NOTE | 2020-09-16 13:00 | NUR ---
Pt. awake at bedside and eating lunch. No signs of distress observed.
--- NOTE | 2020-09-16 15:00 | NUR ---
Pt. awake in bed, lying in supine position.
--- NOTE | 2020-09-16 17:00 | NUR ---
Pt.'s son visited her and pt. was very joyful about his visit. RN encouraged PO fluids. Pt. now asleep in bed on left side. Normal rate and rhythm of respirations observed. Pt. in no apparent distress.
[2020-09-16] MEDS: QUEtiapine 25mg tablet PO SCH (20:11)
--- NOTE | 2020-09-16 20:15 | NUR ---
Patient sat up for night time medications. She is compliant with medications, confusion is chronic. She is very polite. She is now sitting up reading a magazine. In view from the nurses station. Frequent rounding for patient safety.
--- NOTE | 2020-09-16 23:01 | NUR ---
Patient is up to void, ambulates well. Returned to bed with no problem.
--- NOTE | 2020-09-17 02:18 | NUR ---
Patient is sleeping quietly, mid fowlers position in bed.
--- NOTE | 2020-09-17 05:06 | NUR ---
Patient is awake and sitting at bedside. She demonstrates euphoria. Patient is in no distress. She remains disoriented, (not a new finding) The patient is continously bening reoriented to reality.
--- NOTE | 2020-09-17 05:59 | NUR ---
Patient is laying in bed reading quietly. No distress.
--- NOTE | 2020-09-17 06:56 | NUR ---
Patient appears to be sleeping. Pt on right side in mid fowlers position. Respirations even and unlabored.
[2020-09-17] MEDS: busPIRone 15mg tablet PO SCH ×2 (08:17→19:49)
[2020-09-17] MEDS: loratadine 10mg tablet PO SCH (08:17)
[2020-09-17] MEDS: furosemide 20MG tablet PO SCH ×2 (08:17→16:00)
[2020-09-17] MEDS: pantoprazole 40mg Tablet.DR PO SCH (08:17)
[2020-09-17] MEDS: levoTHYROXINE 25mcg tablet PO SCH (08:17)
[2020-09-17] MEDS: multivitamins, therapeutics tablet PO SCH (08:17)
[2020-09-17] MEDS: cholecalciferol (vitamin D3) 1,000 unit (25mcg) tablet PO SCH (08:17)
--- NOTE | 2020-09-17 08:55 | NUR ---
Patient is pleasant, but continues to present confused. 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 Pt is independent and able to make needs known. Pt reports LBM was this morning.
--- NOTE | 2020-09-17 11:05 | NUR ---
Patient sitting up on her bed watching T.V. Pt is plesant and happy. Pt told RN "You know I have been sober for 2 weeks!" Pt smiles and says "I'ma a touch old bitch." Pt talks about "leaving soon." RN explained that the group social worker is trying to find placement for her "Oh that sounds so exciting!"
--- NOTE | 2020-09-17 12:19 | NUR ---
PT RESTING ON RIGHT SIDE, NO DISTRESS NOTED.
--- NOTE | 2020-09-17 14:01 | NUR ---
Patient lying on bed in mid galaviz position, watching T.V.
--- NOTE | 2020-09-17 16:31 | NUR ---
Received notice that pt was accepted to [facility] in [place]. Pt will be discharged tomorrow at 0700. Pt became agitated and said "I am not going to go until I speak to my children." "I am 75 years old I don't know anyone." Pt was reassurred that she would be able to go outside and that is a safe place for her. Pt is now talking to her son Herson and it seems to be calming her down. Pt voices concern that no one will come and visit her. Son reassured that they would come and visit. Pt sitting on side of bed talking on phone calm.
--- NOTE | 2020-09-17 16:34 | NUR ---
Covid swab collected and sent to lab.
--- NOTE | 2020-09-17 19:21 | NUR ---
The patient is up visiting with peers on the unit appropriately. She is in good spirits and is aware that she will be discharged tomorrow.
[2020-09-17] MEDS: QUEtiapine 25mg tablet PO SCH (19:50)
--- NOTE | 2020-09-17 20:55 | NUR ---
The patient appears to be asleep on her bed
--- NOTE | 2020-09-17 22:53 | NUR ---
The patient is resting on her bed reading a book
--- NOTE | 2020-09-18 01:04 | NUR ---
The patient has been sleeping restlessly and is awake frequently
--- NOTE | 2020-09-18 04:08 | NUR ---
The patient appears to be sleeping
[2020-09-18 05:52] VITALS: BP_SYST 135
--- NOTE | 2020-09-18 06:31 | NUR ---
Recevied patient sleeping at shift change, respirations even and unlabored.
[2020-09-18] MEDS: multivitamins, therapeutics tablet PO SCH (07:01)
[2020-09-18] MEDS: busPIRone 15mg tablet PO SCH (07:01)
[2020-09-18] MEDS: levoTHYROXINE 25mcg tablet PO SCH (07:01)
[2020-09-18] MEDS: pantoprazole 40mg Tablet.DR PO SCH (07:01)
[2020-09-18] MEDS: furosemide 20MG tablet PO SCH (07:01)
[2020-09-18] MEDS: cholecalciferol (vitamin D3) 1,000 unit (25mcg) tablet PO SCH (07:01)
[2020-09-18] MEDS: loratadine 10mg tablet PO SCH (07:20)
[2020-09-18 07:39] VITALS: BP_DIAS 135
--- NOTE | 2020-09-18 07:46 | NUR ---
DISCHARGE NOTE: Patient was discharged to [facility] in [facility]. Pt left at 0740 with EMS as transport. Pt left with personal belongings. Pt was alert, and happy. Pt said "my family is waiting for me when I get there." Snack with drinks was sent with patient. Discharge/admit papers were given to bottom hoop driver. Pt has been on unit since 08/27/20.
--- NOTE | 2020-09-18 07:48 | NUR ---
DISCHARGEN NOTE was written by Dolly Santana.
== END 2020-09-18 07:48 | disposition home or self-care (01) ==
LOC: ER 11:40
DX: R41.82 Altered mental status, unspecified (principal); Z20.822 Contact with and (suspected) exposure to COVID-19; G40.909 Epilepsy, unspecified, not intractable, without status epilepticus; I10 Essential (primary) hypertension; E07.9 Disorder of thyroid, unspecified; F15.90 Other stimulant use, unspecified, uncomplicated; Z90.49 Acquired absence of other specified parts of digestive tract; Z98.891 History of uterine scar from previous surgery; Z79.899 Other long term (current) drug therapy
CPT/HCPCS: 36415; 80053; 80305; 80320; 81001; 81003; 84439; 84443; 85008; 85025; 87635; 99285; C9803; 88305; 88342